=== PATIENT | female | born 1960 | race African-American/Black ===

== ENCOUNTER 2017-08-13 16:27 | Inpatient (IN) | payer MEDICARE, MEDICAID ==
[2017-08-13] MEDS: IV NORMAL SALINE 1000ML BAG 1,000 ML IV ×2 (16:45)
[2017-08-13] MEDS ORDERED: OCTREOTIDE 500 MCG in IV NORMAL SALINE 100ML 100 ML IV (16:45)
[2017-08-13] MEDS ORDERED: PIP/TAZO PER PHARMACY MC (17:00)
[2017-08-13 17:10] LABS: BILIRUBIN,URINE MODERATE (NEG); CLARITY,URINE CLOUDY; GLUCOSE,URINE NEGATIVE (NEG); PROTEIN,URINE 30 mg/dL (NEG-TRACE)
[2017-08-13 17:18] LABS: COLOR,URINE BROWN; NITRITE,URINE NEGATIVE (NEG)
[2017-08-13 17:22] LABS: BACTERIA,URINE 0 /HPF (0-FEW); HYALINE CASTS, URINE MANY /HPF; RBC,URINE TNTC /HPF (0-2); SQUAMOUS EPITHELIAL CELL,UR FEW /LPF
[2017-08-13] MEDS: PANTOPRAZOLE IV PUSH 40 MG VIAL. IVP (17:24)
[2017-08-13] MEDS: HYDROCORTISONE SOD SUCC/PF 100 MG/2 ML VIAL. IV ×2 (17:24→22:46)
[2017-08-13] MEDS: VANCOMYCIN 2 GM in IV 1/2 NORMAL SALINE 500 ML IV (19:36)
[2017-08-13] MEDS: SODIUM BICARBONATE VIAL 150 MEQ in IV DEXTROSE 5% 1,000 ML IV (19:37)
[2017-08-13] MEDS ORDERED: NOREPINEPHRIN PREMIX 250 ML IV (22:45)
[2017-08-13 23:04] LABS: BASO % 0 % (0-3); EOS % 0 % (0-3); HEMATOCRIT 25.9 % (36.0-47.0); HEMOGLOBIN 8.6 g/dL (12.0-15.5); LYMPH # 0.3 x10^3/uL (1.0-4.8); LYMPH % 3 % (24-48); MEAN CORPUSCULAR HEMOGLOBIN 30 pg (25-35); MEAN CORPUSCULAR HGB CONC 33 g/dL (31-37); MEAN CORPUSCULAR VOLUME 91 fL (79-100); MONO # 0.2 x10^3/uL (0.0-1.1); MONO % 2 % (0-9); NEUT # 9.7 x10^3uL (1.8-7.7); NEUT % 95 % (31-73); PLATELET COUNT 184 x10^3/uL (140-400); RED BLOOD COUNT 2.86 x10^6/uL (3.50-5.40); RED CELL DISTRIBUTION WIDTH 18.8 % (11.5-14.5); WHITE BLOOD COUNT 10.2 x10^3/uL (4.0-11.0)
[2017-08-13 23:05] LABS: ADD MAN DIFF? YES
[2017-08-13 23:23] LABS: % BANDS 15 % (0-9); % EOS 1 % (0-5); % LYMPHS 4 % (24-48); % METAS 1 % (0-0); % MONOS 2 % (0-10); % SEGS 77 % (35-66)
[2017-08-13 23:24] LABS: MAGNESIUM 1.8 mg/dL (1.8-2.4)
[2017-08-13 23:24] LABS: PHOSPHORUS 4.6 mg/dL (2.6-4.7)
[2017-08-13 23:30] LABS: LACTIC ACID 2.4 mmol/L (0.4-2.0)
[2017-08-13 23:33] LABS: ALBUMIN 1.6 g/dL (3.4-5.0); ALBUMIN/GLOBULIN RATIO 0.3 (1.0-1.7); ALK PHOS 301 U/L (46-116); ALT (SGPT) 15 U/L (14-59); ANION GAP 21 (6-14); AST (SGOT) 58 U/L (15-37); BLOOD UREA NITROGEN 74 mg/dL (7-20); BUN/CREATININE RATIO 9 (6-20); CALCIUM 7.6 mg/dL (8.5-10.1); CARBON DIOXIDE 14 mmol/L (21-32); CHLORIDE 101 mmol/L (98-107); CREATININE 7.8 mg/dL (0.6-1.0); GFR 6.5; GLUCOSE 208 mg/dL (70-99); POTASSIUM 5.2 mmol/L (3.5-5.1); SODIUM 136 mmol/L (136-145); TOTAL BILIRUBIN 3.2 mg/dL (0.2-1.0); TOTAL PROTEIN 6.6 g/dL (6.4-8.2)
[2017-08-13 23:34] LABS: PLT ESTIMATE ADEQUATE (ADEQUATE); SCHISTOCYTES FEW; TOXIC GRANULATION MOD; TOXIC VACUOLATION SLIGHT
[2017-08-14] MEDS: SODIUM BICARBONATE VIAL 150 MEQ in IV DEXTROSE 5% 1,000 ML IV ×4 (01:22→20:15)
[2017-08-14] MEDS: VANCOMYCIN PER PHARMACY MC ×2 (03:35→10:08)
[2017-08-14] MEDS: HYDROCORTISONE SOD SUCC/PF 100 MG/2 ML VIAL. IV ×3 (06:17→22:22)
[2017-08-14] MEDS: PIPERACILLIN/TAZOBACTAM 2.25 GM in IV NORMAL SALINE 50ML 50 ML IV ×2 (06:17)
[2017-08-14] MEDS: NOREPINEPHRIN PREMIX 250 ML IV ×2 (06:18→21:24)
[2017-08-14 06:35] LABS: ADD MAN DIFF? NO
[2017-08-14 06:43] LABS: BASO % 0 % (0-3); EOS % 0 % (0-3); HEMATOCRIT 23.1 % (36.0-47.0); LYMPH # 0.3 x10^3/uL (1.0-4.8); LYMPH % 4 % (24-48); MEAN CORPUSCULAR HEMOGLOBIN 31 pg (25-35); MEAN CORPUSCULAR HGB CONC 35 g/dL (31-37); MEAN CORPUSCULAR VOLUME 89 fL (79-100); MONO # 0.2 x10^3/uL (0.0-1.1); MONO % 2 % (0-9); NEUT # 8.8 x10^3uL (1.8-7.7); NEUT % 94 % (31-73); PLATELET COUNT 153 x10^3/uL (140-400); RED CELL DISTRIBUTION WIDTH 18.4 % (11.5-14.5); WHITE BLOOD COUNT 9.3 x10^3/uL (4.0-11.0)
[2017-08-14 07:10] LABS: ALBUMIN 1.4 g/dL (3.4-5.0); ALBUMIN/GLOBULIN RATIO 0.3 (1.0-1.7); ALK PHOS 268 U/L (46-116); ALT (SGPT) 16 U/L (14-59); ANION GAP 18 (6-14); AST (SGOT) 59 U/L (15-37); BLOOD UREA NITROGEN 67 mg/dL (7-20); BUN/CREATININE RATIO 9 (6-20); CARBON DIOXIDE 20 mmol/L (21-32); CHLORIDE 99 mmol/L (98-107); CREATININE 7.5 mg/dL (0.6-1.0); GFR 6.8; GLUCOSE 285 mg/dL (70-99); POTASSIUM 4.4 mmol/L (3.5-5.1); SODIUM 137 mmol/L (136-145); TOTAL BILIRUBIN 2.7 mg/dL (0.2-1.0); TOTAL PROTEIN 6.2 g/dL (6.4-8.2)
[2017-08-14 09:56] LABS: RETIC COUNT 0.3 % (0.5-2.5)
[2017-08-14 10:07] LABS: % SAT IRON 45 % (15-34); IRON,SERUM 38 ug/dL (50-170)
[2017-08-14 10:39] LABS: FOLATE 8.24 ng/ml (3.2-20.0)
[2017-08-14 11:28] LABS: INFLUENZA A PATIENT NEGATIVE (NEGATIVE); INFLUENZA B PATIENT NEGATIVE (NEGATIVE); OBC FLU VALID
[2017-08-14 11:46] LABS: VITAMIN-B12 > 2000 pg/mL (247-911)
[2017-08-14] MEDS: PANTOPRAZOLE IV PUSH 40 MG VIAL. IVP ×2 (12:23→21:19)
[2017-08-14 13:19] LABS: MRSA BY PCR Negative (Negative)
[2017-08-14] MEDS: PIPERACILLIN/TAZOBACTAM 2.25 GM in IV NORMAL SALINE 100ML 100 ML IV ×2 (15:38→22:22)
[2017-08-15] MEDS: SODIUM BICARBONATE VIAL 150 MEQ in IV DEXTROSE 5% 1,000 ML IV ×3 (00:15→10:37)
[2017-08-15 05:15] LABS: ADD MAN DIFF? NO
[2017-08-15 05:36] LABS: BASO % 0 % (0-3); EOS % 0 % (0-3); LYMPH # 0.3 x10^3/uL (1.0-4.8); LYMPH % 4 % (24-48); MEAN CORPUSCULAR HEMOGLOBIN 30 pg (25-35); MEAN CORPUSCULAR HGB CONC 35 g/dL (31-37); MEAN CORPUSCULAR VOLUME 87 fL (79-100); MONO # 0.1 x10^3/uL (0.0-1.1); MONO % 2 % (0-9); NEUT # 6.8 x10^3uL (1.8-7.7); NEUT % 94 % (31-73); PLATELET COUNT 103 x10^3/uL (140-400); RED BLOOD COUNT 2.17 x10^6/uL (3.50-5.40); RED CELL DISTRIBUTION WIDTH 18.5 % (11.5-14.5); WHITE BLOOD COUNT 7.3 x10^3/uL (4.0-11.0)
[2017-08-15 05:41] LABS: HEMATOCRIT 18.8 % (36.0-47.0); HEMOGLOBIN 6.5 g/dL (12.0-15.5)
[2017-08-15 06:01] LABS: ALBUMIN 1.3 g/dL (3.4-5.0); ANION GAP 15 (6-14); BLOOD UREA NITROGEN 53 mg/dL (7-20); CALCIUM 6.3 mg/dL (8.5-10.1); CARBON DIOXIDE 33 mmol/L (21-32); CHLORIDE 94 mmol/L (98-107); CREATININE 5.6 mg/dL (0.6-1.0); GFR 9.6; GLUCOSE 207 mg/dL (70-99); PHOSPHORUS 2.3 mg/dL (2.6-4.7); SODIUM 142 mmol/L (136-145)
[2017-08-15] MEDS: HYDROCORTISONE SOD SUCC/PF 100 MG/2 ML VIAL. IV ×3 (06:11→21:30)
[2017-08-15] MEDS: PIPERACILLIN/TAZOBACTAM 2.25 GM in IV NORMAL SALINE 100ML 100 ML IV ×3 (06:11→21:30)
[2017-08-15] MEDS: ALTEPLASE 2 MG VIAL INT CAT (08:00)
[2017-08-15] MEDS ORDERED: POTASSIUM CHLORIDE 20MEQ 50 ML IV (08:00)
[2017-08-15] MEDS: POTASSIUM CHLORIDE 20MEQ 50 ML IV ×3 (08:30→10:53)
[2017-08-15] MEDS: VANCOMYCIN PER PHARMACY MC ×2 (09:03→21:20)
[2017-08-15] MEDS: PANTOPRAZOLE IV PUSH 40 MG VIAL. IVP ×2 (10:35→21:21)
[2017-08-15 11:29] LABS: HCV ANTIBODY <0.1 s/co ratio (0.0-0.9); HEP A IGM ABDY Negative (Negative); HEP B SURFACE AG Negative (Negative)
[2017-08-15] MEDS ORDERED: POTASSIUM PHOSPHATE DIBASIC 13.6 MMOL in IV NORMAL SALINE 250ML 250 ML IV ×2 (11:30→14:00)
[2017-08-15] MEDS: IV NORMAL SALINE 1000ML BAG 1,000 ML IV ×2 (12:17→21:21)
[2017-08-15] MEDS: POTASSIUM PHOSPHATE DIBASIC 13.6 MMOL in IV DEXTROSE 5% 100 ML IV (12:18)
[2017-08-15 12:49] LABS: CREATINE KINASE 181 U/L (26-192)
[2017-08-15 14:20] LABS: IMMEDIATE SPIN CROSSMATCH 1 1
[2017-08-15 18:44] LABS: FIBRINOGEN 290 mg/dL (200-440); INR 1.4 (0.8-1.1); PARTIAL THROMBOPLASTIN TIME 42 SEC (24-38); PROTHROMBIN TIME PATIENT 16.6 SEC (11.7-14.0)
[2017-08-15] MEDS: VANCOMYCIN RANDOM LEVEL. MC (19:00)
[2017-08-15 19:08] LABS: FERRITIN 739 ng/mL (8-252); LACTATE DEHYDROGENASE 238 U/L (81-234)
[2017-08-15 19:08] LABS: DIRECT BILIRUBIN 1.2 mg/dL (0.0-0.2)
[2017-08-16] MEDS: IV NORMAL SALINE 1000ML BAG 1,000 ML IV ×3 (06:26→23:17)
[2017-08-16] MEDS: PIPERACILLIN/TAZOBACTAM 2.25 GM in IV NORMAL SALINE 100ML 100 ML IV ×3 (06:26→23:20)
[2017-08-16] MEDS: HYDROCORTISONE SOD SUCC/PF 100 MG/2 ML VIAL. IV ×3 (06:26→23:21)
[2017-08-16 06:43] LABS: ADD MAN DIFF? NO
[2017-08-16 06:45] LABS: BASO % 0 % (0-3); EOS % 0 % (0-3); HEMOGLOBIN 8.1 g/dL (12.0-15.5); LYMPH # 0.3 x10^3/uL (1.0-4.8); LYMPH % 5 % (24-48); MEAN CORPUSCULAR HEMOGLOBIN 29 pg (25-35); MEAN CORPUSCULAR HGB CONC 34 g/dL (31-37); MEAN CORPUSCULAR VOLUME 86 fL (79-100); MONO # 0.2 x10^3/uL (0.0-1.1); MONO % 3 % (0-9); NEUT # 6.2 x10^3uL (1.8-7.7); NEUT % 92 % (31-73); PLATELET COUNT 81 x10^3/uL (140-400); RED BLOOD COUNT 2.79 x10^6/uL (3.50-5.40); WHITE BLOOD COUNT 6.7 x10^3/uL (4.0-11.0)
[2017-08-16 08:07] LABS: ANION GAP 12 (6-14); BLOOD UREA NITROGEN 44 mg/dL (7-20); CALCIUM 6.1 mg/dL (8.5-10.1); CARBON DIOXIDE 35 mmol/L (21-32); CHLORIDE 98 mmol/L (98-107); CREATININE 4.6 mg/dL (0.6-1.0); GLUCOSE 139 mg/dL (70-99); POTASSIUM 3.8 mmol/L (3.5-5.1); SODIUM 145 mmol/L (136-145)
[2017-08-16 09:16] LABS: PHOSPHORUS 3.1 mg/dL (2.6-4.7)
[2017-08-16 09:23] LABS: MAGNESIUM 1.3 mg/dL (1.8-2.4)
[2017-08-16] MEDS: PANTOPRAZOLE IV PUSH 40 MG VIAL. IVP ×2 (10:33→21:29)
[2017-08-16] MEDS: VANCOMYCIN PER PHARMACY MC ×2 (14:50→19:58)
[2017-08-16] MEDS: MAGNESIUM SULFATE 4GM 100 ML IV (14:52)
[2017-08-16 16:21] LABS: PATHOLOGY REVIEW SEE SEPARATE REPORT
[2017-08-16] MEDS: VANCOMYCIN RANDOM LEVEL. MC (18:00)
[2017-08-16] MEDS: VANCOMYCIN 1 GM in IV DEXTROSE 5 %-0.2 % NACL 250 ML IV (20:06)
[2017-08-17 05:46] LABS: ADD MAN DIFF? NO
[2017-08-17 06:10] LABS: ANION GAP 7 (6-14); BLOOD UREA NITROGEN 48 mg/dL (7-20); CALCIUM 6.1 mg/dL (8.5-10.1); CARBON DIOXIDE 36 mmol/L (21-32); CHLORIDE 99 mmol/L (98-107); GFR 14.1; GLUCOSE 266 mg/dL (70-99); MAGNESIUM 2.4 mg/dL (1.8-2.4); PHOSPHORUS 1.5 mg/dL (2.6-4.7); POTASSIUM 3.1 mmol/L (3.5-5.1); SODIUM 142 mmol/L (136-145)
[2017-08-17 06:12] LABS: BASO % 0 % (0-3); EOS % 0 % (0-3); HEMATOCRIT 24.3 % (36.0-47.0); HEMOGLOBIN 8.1 g/dL (12.0-15.5); LYMPH # 0.2 x10^3/uL (1.0-4.8); LYMPH % 3 % (24-48); MEAN CORPUSCULAR HEMOGLOBIN 29 pg (25-35); MEAN CORPUSCULAR HGB CONC 33 g/dL (31-37); MEAN CORPUSCULAR VOLUME 87 fL (79-100); MONO # 0.2 x10^3/uL (0.0-1.1); MONO % 3 % (0-9); NEUT % 94 % (31-73); PLATELET COUNT 69 x10^3/uL (140-400); RED BLOOD COUNT 2.78 x10^6/uL (3.50-5.40); RED CELL DISTRIBUTION WIDTH 17.9 % (11.5-14.5); WHITE BLOOD COUNT 6.4 x10^3/uL (4.0-11.0)
[2017-08-17] MEDS: HYDROCORTISONE SOD SUCC/PF 100 MG/2 ML VIAL. IV ×3 (06:33→22:03)
[2017-08-17] MEDS: PIPERACILLIN/TAZOBACTAM 2.25 GM in IV NORMAL SALINE 100ML 100 ML IV ×3 (06:34→22:03)
[2017-08-17 08:21] LABS: POC GLUCOSE 208 mg/dL (70-99)
[2017-08-17] MEDS: MAGNESIUM SULFATE 4GM 100 ML IV (09:00)
[2017-08-17] MEDS: PANTOPRAZOLE IV PUSH 40 MG VIAL. IVP (09:14)
[2017-08-17] MEDS: VANCOMYCIN PER PHARMACY MC (09:20)
[2017-08-17] MEDS ORDERED: DEXTROSE 50% 25 GM / 50ML DISP.SYRIN. IV (10:30)
[2017-08-17 11:44] LABS: ALBUMIN 1.6 g/dL (3.4-5.0); ALK PHOS 306 U/L (46-116); ALT (SGPT) 27 U/L (14-59); AST (SGOT) 79 U/L (15-37); DIRECT BILIRUBIN 1.1 mg/dL (0.0-0.2); TOTAL BILIRUBIN 1.5 mg/dL (0.2-1.0)
[2017-08-17] MEDS: POTASSIUM PHOSPHATE DIBASIC 13.6 MMOL in IV DEXTROSE 5% 100 ML IV (12:25)
[2017-08-17 13:06] LABS: POC GLUCOSE 236 mg/dL (70-99)
[2017-08-17] MEDS ORDERED: BUTORPHANOL 2 MG/ML VIAL. IV (13:15)
[2017-08-17] MEDS: IV NORMAL SALINE 1000ML BAG 1,000 ML IV (14:00)
[2017-08-17] MEDS: INSULIN ASPART 300 UNITS/3 ML INSULN.PEN SQ ×2 (14:06→18:08)
[2017-08-17 16:43] LABS: THYROID STIM HORMONE (TSH) 0.153 uIU/mL (0.358-3.74)
[2017-08-18 05:11] LABS: ADD MAN DIFF? NO
[2017-08-18 05:27] LABS: BASO % 0 % (0-3); EOS % 0 % (0-3); HEMATOCRIT 24.3 % (36.0-47.0); HEMOGLOBIN 8.2 g/dL (12.0-15.5); LYMPH # 0.5 x10^3/uL (1.0-4.8); LYMPH % 9 % (24-48); MEAN CORPUSCULAR HEMOGLOBIN 29 pg (25-35); MEAN CORPUSCULAR HGB CONC 34 g/dL (31-37); MEAN CORPUSCULAR VOLUME 87 fL (79-100); MONO # 0.5 x10^3/uL (0.0-1.1); MONO % 10 % (0-9); NEUT # 4.2 x10^3uL (1.8-7.7); NEUT % 81 % (31-73); PLATELET COUNT 87 x10^3/uL (140-400); RED BLOOD COUNT 2.79 x10^6/uL (3.50-5.40); RED CELL DISTRIBUTION WIDTH 18.2 % (11.5-14.5); WHITE BLOOD COUNT 5.2 x10^3/uL (4.0-11.0)
[2017-08-18 05:30] LABS: ANION GAP 9 (6-14); BLOOD UREA NITROGEN 51 mg/dL (7-20); CALCIUM 6.3 mg/dL (8.5-10.1); CARBON DIOXIDE 34 mmol/L (21-32); CHLORIDE 101 mmol/L (98-107); CREATININE 3.5 mg/dL (0.6-1.0); GFR 16.5; GLUCOSE 208 mg/dL (70-99); POTASSIUM 3.4 mmol/L (3.5-5.1); SODIUM 144 mmol/L (136-145)
[2017-08-18] MEDS: PIPERACILLIN/TAZOBACTAM 2.25 GM in IV NORMAL SALINE 100ML 100 ML IV ×3 (06:00→23:15)
[2017-08-18] MEDS: HYDROCORTISONE SOD SUCC/PF 100 MG/2 ML VIAL. IV ×3 (06:01→20:06)
[2017-08-18 08:43] LABS: POC GLUCOSE 182 mg/dL (70-99)
[2017-08-18] MEDS: MAGNESIUM SULFATE 4GM 100 ML IV (09:00)
[2017-08-18] MEDS: PANTOPRAZOLE IV PUSH 40 MG VIAL. IVP (10:12)
[2017-08-18] MEDS: INSULIN ASPART 300 UNITS/3 ML INSULN.PEN SQ ×3 (10:19→18:28)
[2017-08-18] MEDS: POTASSIUM CHLORIDE 20MEQ 50 ML IV (11:40)
[2017-08-18] MEDS: FUROSEMIDE 40 MG/4 ML VIAL. IVP (16:44)
[2017-08-18 17:30] LABS: BARBITURATES NEG (NEG); BENZODIAZEPINES NEG (NEG); CANNABINOIDS NEG (NEG); COCAINE NEG (NEG); METHADONE NEG (NEG); OPIATES NEG (NEG); PHENCYCLIDINE NEG (NEG)
[2017-08-18 17:41] LABS: AMPHETAMINE/METHAMPHETAMINE NEG (NEG); ETHANOL, URINE NEG (NEG)
[2017-08-18 17:42] LABS: AMMONIA 31 mcmol/L (11-34)
[2017-08-18 17:47] LABS: POC GLUCOSE 227 mg/dL (70-99)
[2017-08-18] MEDS: IPRATRPIUM/ALBUTEROL 0.5/2.5MG 3 ML NEBU. NEB (21:06)
[2017-08-19] MEDS: HYDROCORTISONE SOD SUCC/PF 100 MG/2 ML VIAL. IV ×3 (04:39→21:44)
[2017-08-19] MEDS: PIPERACILLIN/TAZOBACTAM 2.25 GM in IV NORMAL SALINE 100ML 100 ML IV ×3 (04:39→21:44)
[2017-08-19 05:09] LABS: ADD MAN DIFF? NO
[2017-08-19 05:18] LABS: BASO % 0 % (0-3); EOS % 0 % (0-3); HEMOGLOBIN 7.1 g/dL (12.0-15.5); LYMPH # 0.6 x10^3/uL (1.0-4.8); LYMPH % 12 % (24-48); MEAN CORPUSCULAR HEMOGLOBIN 30 pg (25-35); MEAN CORPUSCULAR HGB CONC 34 g/dL (31-37); MEAN CORPUSCULAR VOLUME 88 fL (79-100); MONO # 0.7 x10^3/uL (0.0-1.1); MONO % 14 % (0-9); NEUT # 3.6 x10^3uL (1.8-7.7); NEUT % 74 % (31-73); PLATELET COUNT 102 x10^3/uL (140-400); RED BLOOD COUNT 2.35 x10^6/uL (3.50-5.40); RED CELL DISTRIBUTION WIDTH 18.5 % (11.5-14.5); WHITE BLOOD COUNT 4.9 x10^3/uL (4.0-11.0)
[2017-08-19 05:36] LABS: HEMATOCRIT 20.7 % (36.0-47.0)
[2017-08-19 05:42] LABS: ALBUMIN 1.7 g/dL (3.4-5.0); ANION GAP 8 (6-14); BLOOD UREA NITROGEN 58 mg/dL (7-20); CALCIUM 6.2 mg/dL (8.5-10.1); CARBON DIOXIDE 35 mmol/L (21-32); CHLORIDE 103 mmol/L (98-107); CREATININE 3.3 mg/dL (0.6-1.0); GFR 17.6; GLUCOSE 208 mg/dL (70-99); PHOSPHORUS 1.5 mg/dL (2.6-4.7); SODIUM 146 mmol/L (136-145)
[2017-08-19 05:54] LABS: POTASSIUM 2.9 mmol/L (3.5-5.1)
[2017-08-19] MEDS ORDERED: POTASSIUM CHLORIDE 20MEQ 50 ML IV ×3 (07:30→14:45)
[2017-08-19] MEDS: IPRATRPIUM/ALBUTEROL 0.5/2.5MG 3 ML NEBU. NEB ×4 (07:47→21:22)
[2017-08-19] MEDS: POTASSIUM CHLORIDE 20MEQ 50 ML IV ×2 (08:32→10:42)
[2017-08-19] MEDS: PANTOPRAZOLE IV PUSH 40 MG VIAL. IVP (08:35)
[2017-08-19] MEDS: MAGNESIUM SULFATE 4GM 100 ML IV (09:00)
[2017-08-19] MEDS: INSULIN ASPART 300 UNITS/3 ML INSULN.PEN SQ ×3 (09:01→18:30)
[2017-08-19 09:02] LABS: POC GLUCOSE 195 mg/dL (70-99)
[2017-08-19 11:39] LABS: POC GLUCOSE 194 mg/dL (70-99)
[2017-08-19] MEDS ORDERED: POTASSIUM PHOSPHATE DIBASIC IV (14:45)
[2017-08-19] MEDS ORDERED: NORMAL SALINE IV (14:45)
[2017-08-19] MEDS ORDERED: MAGNESIUM SULFATE 2GM 50 ML IV (14:45)
[2017-08-19 18:07] LABS: POC GLUCOSE 254 mg/dL (70-99)
[2017-08-19 18:29] LABS: POTASSIUM 3.3 mmol/L (3.5-5.1)
[2017-08-19] MEDS: POTASSIUM PHOSPHATE DIBASIC 13.6 MMOL in IV DEXTROSE 5% 100 ML IV (19:19)
[2017-08-20] MEDS: POTASSIUM PHOSPHATE DIBASIC 13.6 MMOL in IV DEXTROSE 5% 100 ML IV ×2 (02:37→04:39)
[2017-08-20] MEDS: PIPERACILLIN/TAZOBACTAM 2.25 GM in IV NORMAL SALINE 100ML 100 ML IV ×3 (05:48→21:47)
[2017-08-20] MEDS: HYDROCORTISONE SOD SUCC/PF 100 MG/2 ML VIAL. IV ×3 (05:48→21:47)
[2017-08-20 06:36] LABS: POC GLUCOSE 456 mg/dL (70-99)
[2017-08-20 06:36] LABS: POC GLUCOSE 238 mg/dL (70-99)
[2017-08-20 06:55] LABS: BASO % 0 % (0-3); EOS % 0 % (0-3); HEMATOCRIT 21.2 % (36.0-47.0); LYMPH # 0.4 x10^3/uL (1.0-4.8); LYMPH % 5 % (24-48); MEAN CORPUSCULAR HEMOGLOBIN 30 pg (25-35); MEAN CORPUSCULAR HGB CONC 33 g/dL (31-37); MEAN CORPUSCULAR VOLUME 90 fL (79-100); MONO # 0.9 x10^3/uL (0.0-1.1); MONO % 14 % (0-9); NEUT # 5.4 x10^3uL (1.8-7.7); NEUT % 81 % (31-73); PLATELET COUNT 57 x10^3/uL (140-400); RED BLOOD COUNT 2.36 x10^6/uL (3.50-5.40); RED CELL DISTRIBUTION WIDTH 18.5 % (11.5-14.5); WHITE BLOOD COUNT 6.6 x10^3/uL (4.0-11.0)
[2017-08-20 07:00] LABS: ANION GAP 13 (6-14); BLOOD UREA NITROGEN 60 mg/dL (7-20); CALCIUM 6.3 mg/dL (8.5-10.1); CARBON DIOXIDE 32 mmol/L (21-32); CHLORIDE 104 mmol/L (98-107); GFR 19.7; GLUCOSE 267 mg/dL (70-99); POTASSIUM 3.9 mmol/L (3.5-5.1); SODIUM 149 mmol/L (136-145)
[2017-08-20 07:04] LABS: PHOSPHORUS 4.5 mg/dL (2.6-4.7)
[2017-08-20 07:31] LABS: ADD MAN DIFF? YES
[2017-08-20] MEDS: IPRATRPIUM/ALBUTEROL 0.5/2.5MG 3 ML NEBU. NEB ×4 (08:35→18:24)
[2017-08-20] MEDS: PANTOPRAZOLE IV PUSH 40 MG VIAL. IVP (09:18)
[2017-08-20] MEDS: CALCIUM CHLORIDE 1,000 MG in IV DEXTROSE 5% 50 ML IV ×3 (09:18→21:46)
[2017-08-20 09:20] LABS: % BANDS 14 % (0-9); % LYMPHS 5 % (24-48); % METAS 2 % (0-0); % MONOS 14 % (0-10); % SEGS 65 % (35-66); NUCLEATED RBC 5; PLT ESTIMATE DECREASED (ADEQUATE); POLYCHROMASIA PRESENT
[2017-08-20 09:21] LABS: ANISOCYTOSIS MOD; HYPOCHROMIA SLIGHT
[2017-08-20] MEDS: INSULIN ASPART 300 UNITS/3 ML INSULN.PEN SQ ×3 (09:27→17:22)
[2017-08-20 09:47] LABS: TARGET CELLS FEW
[2017-08-20 09:48] LABS: OVALOCYTES FEW; TEAR DROP CELLS OCC
[2017-08-20 11:42] LABS: POC GLUCOSE 217 mg/dL (70-99)
[2017-08-20 14:54] LABS: IMMEDIATE SPIN CROSSMATCH 1 1
[2017-08-20] MEDS: ASPIRIN CHEWABLE 81 MG TABLET. PO (16:57)
[2017-08-20 17:25] LABS: POC GLUCOSE 199 mg/dL (70-99)
[2017-08-21 00:37] LABS: POC GLUCOSE 171 mg/dL (70-99)
[2017-08-21] MEDS: HYDROCORTISONE SOD SUCC/PF 100 MG/2 ML VIAL. IV ×2 (05:44→14:09)
[2017-08-21] MEDS: PIPERACILLIN/TAZOBACTAM 2.25 GM in IV NORMAL SALINE 100ML 100 ML IV (05:44)
[2017-08-21 06:24] LABS: ADD MAN DIFF? NO
[2017-08-21 06:41] LABS: ANION GAP 12 (6-14); BASO % 0 % (0-3); BLOOD UREA NITROGEN 61 mg/dL (7-20); CALCIUM 8.3 mg/dL (8.5-10.1); CARBON DIOXIDE 31 mmol/L (21-32); CHLORIDE 104 mmol/L (98-107); CREATININE 2.8 mg/dL (0.6-1.0); EOS % 0 % (0-3); GFR 21.3; GLUCOSE 217 mg/dL (70-99); HEMATOCRIT 27.7 % (36.0-47.0); HEMOGLOBIN 9.1 g/dL (12.0-15.5); LYMPH # 0.3 x10^3/uL (1.0-4.8); LYMPH % 4 % (24-48); MAGNESIUM 1.9 mg/dL (1.8-2.4); MEAN CORPUSCULAR HEMOGLOBIN 31 pg (25-35); MEAN CORPUSCULAR HGB CONC 33 g/dL (31-37); MEAN CORPUSCULAR VOLUME 93 fL (79-100); MONO # 0.7 x10^3/uL (0.0-1.1); MONO % 9 % (0-9); NEUT # 6.6 x10^3uL (1.8-7.7); NEUT % 87 % (31-73); PHOSPHORUS 4.1 mg/dL (2.6-4.7); PLATELET COUNT 72 x10^3/uL (140-400); POTASSIUM 3.9 mmol/L (3.5-5.1); RED BLOOD COUNT 2.97 x10^6/uL (3.50-5.40); RED CELL DISTRIBUTION WIDTH 18.2 % (11.5-14.5); SODIUM 147 mmol/L (136-145); WHITE BLOOD COUNT 7.7 x10^3/uL (4.0-11.0)
[2017-08-21] MEDS: IPRATRPIUM/ALBUTEROL 0.5/2.5MG 3 ML NEBU. NEB ×2 (07:47→13:19)
[2017-08-21] MEDS: PANTOPRAZOLE IV PUSH 40 MG VIAL. IVP (08:27)
[2017-08-21] MEDS: ASPIRIN CHEWABLE 81 MG TABLET. PO (08:33)
[2017-08-21] MEDS: INSULIN ASPART 300 UNITS/3 ML INSULN.PEN SQ ×2 (08:52→13:36)
[2017-08-21 08:54] LABS: POC GLUCOSE 197 mg/dL (70-99)
[2017-08-21 11:47] LABS: POC GLUCOSE 211 mg/dL (70-99)
[2017-08-21] MEDS: PIPERACILLIN/TAZOBACTAM 2.25 GM in IV NORMAL SALINE 50ML 50 ML IV (14:09)
== END 2017-08-21 16:07 | DRG 682 ==
LOC: 2 SOUTH 08-17 04:34 → 1 WEST ICU 16:27
PROVIDERS: Internal Medicine
PROC: 30233N1 Transfusion of Nonautologous Red Blood Cells into Peripheral Vein, Percutaneous Approach (ICD-10-PCS; principal; 2017-08-15)
DX: N17.0 Acute kidney failure with tubular necrosis (principal); G93.41 Metabolic encephalopathy; R57.9 Shock, unspecified; D61.818 Other pancytopenia; E11.22 Type 2 diabetes mellitus with diabetic chronic kidney disease; R17 Unspecified jaundice; I48.91 Unspecified atrial fibrillation; E86.0 Dehydration; E87.2 Acidosis; I13.0 Hypertensive heart and chronic kidney disease with heart failure and stage 1 through stage 4 chronic kidney disease, or unspecified chronic kidney disease; E83.51 Hypocalcemia; N18.3 Chronic kidney disease, stage 3 (moderate); I50.9 Heart failure, unspecified; D63.8 Anemia in other chronic diseases classified elsewhere; D86.9 Sarcoidosis, unspecified; E66.9 Obesity, unspecified; E78.5 Hyperlipidemia, unspecified; E87.6 Hypokalemia; J32.0 Chronic maxillary sinusitis; J44.9 Chronic obstructive pulmonary disease, unspecified; K21.9 Gastro-esophageal reflux disease without esophagitis; K27.9 Peptic ulcer, site unspecified, unspecified as acute or chronic, without hemorrhage or perforation; M10.9 Gout, unspecified; M19.90 Unspecified osteoarthritis, unspecified site; Z79.82 Long term (current) use of aspirin; Z79.899 Other long term (current) drug therapy; Z80.3 Family history of malignant neoplasm of breast; Z82.49 Family history of ischemic heart disease and other diseases of the circulatory system; Z87.11 Personal history of peptic ulcer disease; Z90.49 Acquired absence of other specified parts of digestive tract; Z95.0 Presence of cardiac pacemaker
CPT/HCPCS: 36415; 36569; 70450; 71045; 74018; 74176; 76705; 76770; 80048; 80053; 80069; 80074; 80076; 80202; 80307; 81001; 82140; 82248; 82550; 82607; 82728; 82746; 82962; 83540; 83550; 83605; 83615; 83735; 84100; 84132; 84439; 84443; 84481; 85007; 85025; 85045; 85384; 85610; 85730; 86850; 86900; 86901; 86920; 87040; 87641; 87804; 87804-59; 92526-GN; 92610-GN; 94640; 94760; 95816; 97110-GP; 97116-GP; 97163-GP; 97165-GO; 97530-GO; 97530-GP; 97535-GO; C9113; J1720; J1815; J1940; J2543; J2997; J3370; J3475; J3480; J7030; J7620; P9016

== ENCOUNTER 2017-08-23 20:32 | Inpatient (IN) | payer MEDICARE, MEDICAID ==
[2017-08-23] MEDS ORDERED: NITROGLYCERIN SUBLINGUAL 0.4 MG BOTTLE OF 25. SL (21:45)
[2017-08-23] MEDS ORDERED: POLYETHYLENE GLYCOL 3350 17 GM PACKET. PEG (21:45)
[2017-08-23] MEDS: AMOXICILLIN/K CLAV 500/125MG TABLET. PEG (21:46)
[2017-08-23] MEDS: POLYVINYL ALCOHOL 1.4% OPHTH SOLUTION 15ML BOTTLE. OU (21:46)
[2017-08-23] MEDS: LANSOPRAZOLE 30 MG TAB.RAP.DR FT (21:47)
[2017-08-23] MEDS: ATORVASTATIN CALCIUM 40 MG TABLET. PEG (21:47)
[2017-08-23] MEDS: PROPAFENONE 150 MG TABLET. PEG (21:47)
[2017-08-23 21:49] LABS: HEMATOCRIT 29.6 % (36.0-47.0); HEMOGLOBIN 9.7 g/dL (12.0-15.5); MEAN CORPUSCULAR HEMOGLOBIN 31 pg (25-35); MEAN CORPUSCULAR HGB CONC 33 g/dL (31-37); MEAN CORPUSCULAR VOLUME 93 fL (79-100); PLATELET COUNT 128 x10^3/uL (140-400); RED BLOOD COUNT 3.17 x10^6/uL (3.50-5.40); RED CELL DISTRIBUTION WIDTH 19.5 % (11.5-14.5); WHITE BLOOD COUNT 12.4 x10^3/uL (4.0-11.0)
[2017-08-23 21:57] LABS: INR 1.3 (0.8-1.1); PARTIAL THROMBOPLASTIN TIME 33 SEC (24-38); PROTHROMBIN TIME PATIENT 15.4 SEC (11.7-14.0)
[2017-08-23 22:14] LABS: ALBUMIN 1.7 g/dL (3.4-5.0); ALBUMIN/GLOBULIN RATIO 0.4 (1.0-1.7); ALK PHOS 242 U/L (46-116); ALT (SGPT) 34 U/L (14-59); ANION GAP 9 (6-14); AST (SGOT) 51 U/L (15-37); BLOOD UREA NITROGEN 51 mg/dL (7-20); BUN/CREATININE RATIO 21 (6-20); CARBON DIOXIDE 32 mmol/L (21-32); CHLORIDE 108 mmol/L (98-107); CREATININE 2.4 mg/dL (0.6-1.0); GFR 25.5; GLUCOSE 79 mg/dL (70-99); POTASSIUM 3.6 mmol/L (3.5-5.1); SODIUM 149 mmol/L (136-145); TOTAL BILIRUBIN 1.7 mg/dL (0.2-1.0); TOTAL PROTEIN 6.1 g/dL (6.4-8.2)
[2017-08-23] MEDS: ALBUTEROL SULFATE 2.5 MG/3 ML NEBU. NEB (23:31)
[2017-08-24] MEDS: IV DEXTROSE 5 %-0.45 % NACL 1,000 ML IV (02:18)
[2017-08-24] MEDS: ALBUTEROL SULFATE 2.5 MG/3 ML NEBU. NEB ×2 (03:57→03:58)
[2017-08-24] MEDS: IPRATRPIUM/ALBUTEROL 0.5/2.5MG 3 ML NEBU. NEB ×4 (07:31→20:07)
[2017-08-24] MEDS: C.DIFF MED SCREEN BY RX. MC (08:00)
[2017-08-24] MEDS: IV DEXTROSE 5% 1,000 ML IV (08:21)
[2017-08-24] MEDS: POLYVINYL ALCOHOL 1.4% OPHTH SOLUTION 15ML BOTTLE. OU ×2 (08:22→20:46)
[2017-08-24] MEDS: AMOXICILLIN/K CLAV 500/125MG TABLET. PEG (09:00)
[2017-08-24] MEDS: RANOLAZINE 500 MG TAB.ER.12H PO (09:00)
[2017-08-24] MEDS: ASPIRIN CHEWABLE 81 MG TABLET. PEG (09:00)
[2017-08-24] MEDS: FERROUS SULFATE ORAL 300 MG/5 ML SOLUTION. PEG ×3 (09:00→20:46)
[2017-08-24] MEDS: PROPAFENONE 150 MG TABLET. PEG ×3 (09:00→20:46)
[2017-08-24] MEDS: ALLOPURINOL 300 MG TABLET. PEG (09:00)
[2017-08-24] MEDS: FOLIC ACID 1 MG TABLET. PEG (09:00)
[2017-08-24 14:16] LABS: BILIRUBIN,URINE LARGE (NEG); CLARITY,URINE CLOUDY; COLOR,URINE RED; GLUCOSE,URINE NEGATIVE (NEG); NITRITE,URINE NEGATIVE (NEG); PROTEIN,URINE >=300 mg/dL (NEG-TRACE)
[2017-08-24 14:34] LABS: BACTERIA,URINE 0 /HPF (0-FEW); RBC,URINE TNTC /HPF (0-2); SQUAMOUS EPITHELIAL CELL,UR OCC /LPF
[2017-08-24] MEDS: NYSTATIN TOPICAL POWDER 15GM BOTTLE. TP ×3 (16:00→20:45)
[2017-08-24] MEDS: PANTOPRAZOLE IV PUSH 40 MG VIAL. IVP (18:34)
[2017-08-24] MEDS: FUROSEMIDE 40 MG/4 ML VIAL. IVP (18:34)
[2017-08-24] MEDS: MEROPENEM 500 MG in IV NORMAL SALINE 50ML 50 ML IV (18:39)
[2017-08-24] MEDS: ATORVASTATIN CALCIUM 40 MG TABLET. PEG (20:46)
[2017-08-25] MEDS: MEROPENEM 500 MG in IV NORMAL SALINE 50ML 50 ML IV ×3 (05:47→22:00)
[2017-08-25 05:54] LABS: ANION GAP 14 (6-14); BLOOD UREA NITROGEN 48 mg/dL (7-20); CALCIUM 8.3 mg/dL (8.5-10.1); CARBON DIOXIDE 27 mmol/L (21-32); CHLORIDE 108 mmol/L (98-107); CREATININE 2.7 mg/dL (0.6-1.0); GFR 22.2; GLUCOSE 49 mg/dL (70-99); POTASSIUM 4.2 mmol/L (3.5-5.1); SODIUM 149 mmol/L (136-145)
[2017-08-25] MEDS: DEXTROSE 50% 25 GM / 50ML DISP.SYRIN. IV (06:07)
[2017-08-25] MEDS: ISOSORBIDE DINITRATE 10 MG TABLET. PO ×3 (07:30→16:30)
[2017-08-25] MEDS: IPRATRPIUM/ALBUTEROL 0.5/2.5MG 3 ML NEBU. NEB ×3 (07:51→16:33)
[2017-08-25] MEDS: PANTOPRAZOLE IV PUSH 40 MG VIAL. IVP (08:39)
[2017-08-25] MEDS: FOLIC ACID 1 MG TABLET. PEG (08:41)
[2017-08-25] MEDS: FERROUS SULFATE ORAL 300 MG/5 ML SOLUTION. PEG ×3 (08:41→20:27)
[2017-08-25] MEDS: ASPIRIN CHEWABLE 81 MG TABLET. PEG (08:41)
[2017-08-25] MEDS: PROPAFENONE 150 MG TABLET. PEG ×3 (08:41→20:27)
[2017-08-25] MEDS: ALLOPURINOL 300 MG TABLET. PEG (08:42)
[2017-08-25] MEDS: POLYVINYL ALCOHOL 1.4% OPHTH SOLUTION 15ML BOTTLE. OU ×2 (09:00→21:59)
[2017-08-25 12:21] LABS: ADD MAN DIFF? NO
[2017-08-25 12:30] LABS: BASO % 0 % (0-3); EOS # 0.1 x10^3/uL (0.0-0.7); EOS % 1 % (0-3); HEMATOCRIT 30.2 % (36.0-47.0); HEMOGLOBIN 9.4 g/dL (12.0-15.5); LYMPH # 0.5 x10^3/uL (1.0-4.8); LYMPH % 4 % (24-48); MEAN CORPUSCULAR HEMOGLOBIN 30 pg (25-35); MEAN CORPUSCULAR HGB CONC 31 g/dL (31-37); MEAN CORPUSCULAR VOLUME 96 fL (79-100); MONO # 0.7 x10^3/uL (0.0-1.1); MONO % 6 % (0-9); NEUT # 10.3 x10^3uL (1.8-7.7); NEUT % 89 % (31-73); PLATELET COUNT 132 x10^3/uL (140-400); RED BLOOD COUNT 3.13 x10^6/uL (3.50-5.40); RED CELL DISTRIBUTION WIDTH 20.6 % (11.5-14.5); WHITE BLOOD COUNT 11.6 x10^3/uL (4.0-11.0)
[2017-08-25] MEDS: NYSTATIN TOPICAL POWDER 15GM BOTTLE. TP ×2 (12:41→22:01)
[2017-08-25] MEDS: methylPREDNISolone SOD SUCC PF 125 MG/2 ML VIAL. IV (12:41)
[2017-08-25] MEDS: FUROSEMIDE 40 MG/4 ML VIAL. IVP (12:41)
[2017-08-25 12:47] LABS: BASE EXCESS ABG 2 mmol/L (-3-3); HCO3 ABG 27 mmol/L (21-28); PCO2 ABG 40 mmHg (35-46); PH ABG 7.44 (7.35-7.45); PO2 ABG 87 mmHg (75-108); SAT O2 ABG 95 % (92-99)
[2017-08-25 12:52] LABS: FIO2 ABG 40
[2017-08-25] MEDS: METOPROLOL TART IMMED RELEASE 25 MG TABLET. PO ×2 (13:30→20:27)
[2017-08-25] MEDS: IV DEXTROSE 5% 1,000 ML IV (15:00)
[2017-08-25 15:52] LABS: ANION GAP 12 (6-14); BLOOD UREA NITROGEN 47 mg/dL (7-20); CALCIUM 8.3 mg/dL (8.5-10.1); CARBON DIOXIDE 30 mmol/L (21-32); CHLORIDE 108 mmol/L (98-107); GFR 19.7; GLUCOSE 110 mg/dL (70-99); POTASSIUM 4.2 mmol/L (3.5-5.1); SODIUM 150 mmol/L (136-145)
[2017-08-25 15:59] LABS: MAGNESIUM 1.6 mg/dL (1.8-2.4)
[2017-08-25] MEDS: methylPREDNISolone SOD SUCC PF 40 MG/ML VIAL. IV ×2 (17:23→21:59)
[2017-08-25] MEDS: ATORVASTATIN CALCIUM 40 MG TABLET. PEG (20:27)
[2017-08-25] MEDS: FLUOCINONIDE 0.05% TOPICAL CREAM 15 GM TUBE. TP (21:59)
[2017-08-26] MEDS: MEROPENEM 500 MG in IV NORMAL SALINE 50ML 50 ML IV ×3 (05:28→23:41)
[2017-08-26] MEDS: methylPREDNISolone SOD SUCC PF 40 MG/ML VIAL. IV ×3 (05:28→21:42)
[2017-08-26 06:06] LABS: HEMATOCRIT 26.4 % (36.0-47.0); HEMOGLOBIN 8.6 g/dL (12.0-15.5); MEAN CORPUSCULAR HEMOGLOBIN 30 pg (25-35); MEAN CORPUSCULAR HGB CONC 33 g/dL (31-37); MEAN CORPUSCULAR VOLUME 94 fL (79-100); PLATELET COUNT 136 x10^3/uL (140-400); RED BLOOD COUNT 2.82 x10^6/uL (3.50-5.40); RED CELL DISTRIBUTION WIDTH 19.7 % (11.5-14.5); WHITE BLOOD COUNT 6.6 x10^3/uL (4.0-11.0)
[2017-08-26 06:31] LABS: ALBUMIN 1.7 g/dL (3.4-5.0); ALBUMIN/GLOBULIN RATIO 0.4 (1.0-1.7); ALK PHOS 233 U/L (46-116); ALT (SGPT) 26 U/L (14-59); ANION GAP 15 (6-14); AST (SGOT) 36 U/L (15-37); BLOOD UREA NITROGEN 53 mg/dL (7-20); BUN/CREATININE RATIO 16 (6-20); CALCIUM 8.4 mg/dL (8.5-10.1); CARBON DIOXIDE 26 mmol/L (21-32); CHLORIDE 108 mmol/L (98-107); CREATININE 3.4 mg/dL (0.6-1.0); GLUCOSE 172 mg/dL (70-99); POTASSIUM 4.4 mmol/L (3.5-5.1); SODIUM 149 mmol/L (136-145); TOTAL BILIRUBIN 1.5 mg/dL (0.2-1.0); TOTAL PROTEIN 6.5 g/dL (6.4-8.2)
[2017-08-26] MEDS: IPRATRPIUM/ALBUTEROL 0.5/2.5MG 3 ML NEBU. NEB ×5 (06:58→19:16)
[2017-08-26] MEDS: ISOSORBIDE DINITRATE 10 MG TABLET. PO ×3 (07:30→16:18)
[2017-08-26] MEDS: PANTOPRAZOLE IV PUSH 40 MG VIAL. IVP ×2 (07:46→20:07)
[2017-08-26] MEDS: ALLOPURINOL 300 MG TABLET. PEG (09:00)
[2017-08-26] MEDS: PROPAFENONE 150 MG TABLET. PEG ×3 (09:00→20:43)
[2017-08-26] MEDS: ASPIRIN CHEWABLE 81 MG TABLET. PEG (09:00)
[2017-08-26] MEDS: FERROUS SULFATE ORAL 300 MG/5 ML SOLUTION. PEG ×3 (09:00→20:42)
[2017-08-26] MEDS: FOLIC ACID 1 MG TABLET. PEG (09:00)
[2017-08-26] MEDS: METOPROLOL TART IMMED RELEASE 25 MG TABLET. PO ×2 (09:00→20:43)
[2017-08-26] MEDS: POLYVINYL ALCOHOL 1.4% OPHTH SOLUTION 15ML BOTTLE. OU ×2 (11:23→20:45)
[2017-08-26] MEDS: NYSTATIN TOPICAL POWDER 15GM BOTTLE. TP ×2 (11:24→20:44)
[2017-08-26] MEDS ORDERED: LACTOBACILLUS RHAMNOSUS GG 1 CAPSULE. PO (13:00)
[2017-08-26] MEDS: IV 1/2 NORMAL SALINE 1,000 ML IV (14:19)
[2017-08-26] MEDS: ATORVASTATIN CALCIUM 40 MG TABLET. PEG (20:43)
[2017-08-27 05:01] LABS: ANION GAP 14 (6-14); BLOOD UREA NITROGEN 57 mg/dL (7-20); CALCIUM 8.1 mg/dL (8.5-10.1); CARBON DIOXIDE 26 mmol/L (21-32); CHLORIDE 108 mmol/L (98-107); CREATININE 3.6 mg/dL (0.6-1.0); GFR 15.9; GLUCOSE 132 mg/dL (70-99); POTASSIUM 4.4 mmol/L (3.5-5.1); SODIUM 148 mmol/L (136-145)
[2017-08-27] MEDS: IV 1/2 NORMAL SALINE 1,000 ML IV (05:01)
[2017-08-27] MEDS: methylPREDNISolone SOD SUCC PF 40 MG/ML VIAL. IV ×3 (05:58→21:58)
[2017-08-27] MEDS: MEROPENEM 500 MG in IV NORMAL SALINE 50ML 50 ML IV ×3 (05:58→21:58)
[2017-08-27] MEDS: IPRATRPIUM/ALBUTEROL 0.5/2.5MG 3 ML NEBU. NEB ×4 (07:20→19:36)
[2017-08-27] MEDS: ISOSORBIDE DINITRATE 10 MG TABLET. PO ×3 (07:30→16:14)
[2017-08-27] MEDS: NYSTATIN TOPICAL POWDER 15GM BOTTLE. TP ×2 (07:55→20:38)
[2017-08-27] MEDS: POLYVINYL ALCOHOL 1.4% OPHTH SOLUTION 15ML BOTTLE. OU ×2 (07:55→20:38)
[2017-08-27] MEDS: ASPIRIN CHEWABLE 81 MG TABLET. PEG (08:44)
[2017-08-27] MEDS: FOLIC ACID 1 MG TABLET. PEG (08:44)
[2017-08-27] MEDS: PROPAFENONE 150 MG TABLET. PEG ×3 (08:44→20:39)
[2017-08-27] MEDS: FERROUS SULFATE ORAL 300 MG/5 ML SOLUTION. PEG ×3 (08:44→20:39)
[2017-08-27] MEDS: ALLOPURINOL 300 MG TABLET. PEG (08:44)
[2017-08-27] MEDS: METOPROLOL TART IMMED RELEASE 25 MG TABLET. PO ×2 (08:45→20:39)
[2017-08-27] MEDS: AMINO AC 3%/ELECTROLYTE/GLYCER 1,000 ML IV (12:06)
[2017-08-27] MEDS: FAMOTIDINE 20 MG/2 ML VIAL IVP (15:44)
[2017-08-27] MEDS: FLUOCINONIDE 0.05% TOPICAL CREAM 15 GM TUBE. TP (20:38)
[2017-08-27] MEDS: ATORVASTATIN CALCIUM 40 MG TABLET. PEG (20:39)
[2017-08-28] MEDS: AMINO AC 3%/ELECTROLYTE/GLYCER 1,000 ML IV ×3 (02:06→23:11)
[2017-08-28 05:28] LABS: HEMOGLOBIN 7.8 g/dL (12.0-15.5); MEAN CORPUSCULAR HEMOGLOBIN 31 pg (25-35); MEAN CORPUSCULAR HGB CONC 33 g/dL (31-37); MEAN CORPUSCULAR VOLUME 94 fL (79-100); PLATELET COUNT 126 x10^3/uL (140-400); RED BLOOD COUNT 2.56 x10^6/uL (3.50-5.40); RED CELL DISTRIBUTION WIDTH 18.8 % (11.5-14.5); WHITE BLOOD COUNT 8.8 x10^3/uL (4.0-11.0)
[2017-08-28 05:43] LABS: INR 1.2 (0.8-1.1); PARTIAL THROMBOPLASTIN TIME 33 SEC (24-38); PROTHROMBIN TIME PATIENT 14.5 SEC (11.7-14.0)
[2017-08-28] MEDS: MEROPENEM 500 MG in IV NORMAL SALINE 50ML 50 ML IV ×3 (05:50→22:00)
[2017-08-28] MEDS: methylPREDNISolone SOD SUCC PF 40 MG/ML VIAL. IV ×3 (05:51→22:03)
[2017-08-28 05:52] LABS: ALBUMIN 1.9 g/dL (3.4-5.0); ALBUMIN/GLOBULIN RATIO 0.4 (1.0-1.7); ALK PHOS 201 U/L (46-116); ALT (SGPT) 25 U/L (14-59); ANION GAP 10 (6-14); AST (SGOT) 33 U/L (15-37); BLOOD UREA NITROGEN 65 mg/dL (7-20); BUN/CREATININE RATIO 17 (6-20); CALCIUM 8.2 mg/dL (8.5-10.1); CARBON DIOXIDE 28 mmol/L (21-32); CHLORIDE 108 mmol/L (98-107); CREATININE 3.9 mg/dL (0.6-1.0); GFR 14.5; GLUCOSE 145 mg/dL (70-99); POTASSIUM 4.4 mmol/L (3.5-5.1); SODIUM 146 mmol/L (136-145); TOTAL BILIRUBIN 1.1 mg/dL (0.2-1.0); TOTAL PROTEIN 6.7 g/dL (6.4-8.2)
[2017-08-28] MEDS: ISOSORBIDE DINITRATE 10 MG TABLET. PO ×3 (07:09→11:14)
[2017-08-28] MEDS: ASPIRIN CHEWABLE 81 MG TABLET. PEG (07:09)
[2017-08-28] MEDS: FERROUS SULFATE ORAL 300 MG/5 ML SOLUTION. PEG ×3 (07:20→21:00)
[2017-08-28] MEDS: PROPAFENONE 150 MG TABLET. PEG ×3 (07:20→21:00)
[2017-08-28] MEDS: ALLOPURINOL 300 MG TABLET. PEG (07:20)
[2017-08-28] MEDS: METOPROLOL TART IMMED RELEASE 25 MG TABLET. PO ×2 (07:20→22:09)
[2017-08-28] MEDS: FOLIC ACID 1 MG TABLET. PEG (07:20)
[2017-08-28] MEDS: IPRATRPIUM/ALBUTEROL 0.5/2.5MG 3 ML NEBU. NEB ×4 (07:31→20:01)
[2017-08-28] MEDS: FAMOTIDINE 20 MG/2 ML VIAL IVP (08:38)
[2017-08-28] MEDS: NYSTATIN TOPICAL POWDER 15GM BOTTLE. TP ×2 (08:38→22:02)
[2017-08-28] MEDS: POLYVINYL ALCOHOL 1.4% OPHTH SOLUTION 15ML BOTTLE. OU ×3 (08:38→22:08)
[2017-08-28] MEDS: FUROSEMIDE 40 MG/4 ML VIAL. IVP (12:14)
[2017-08-28] MEDS: ATORVASTATIN CALCIUM 40 MG TABLET. PEG (21:00)
[2017-08-29] MEDS: ALBUTEROL SULFATE 2.5 MG/3 ML NEBU. NEB (03:47)
[2017-08-29 06:10] LABS: HEMOGLOBIN 8.4 g/dL (12.0-15.5)
[2017-08-29 06:10] LABS: HEMATOCRIT 25.6 % (36.0-47.0)
[2017-08-29 06:22] LABS: ANION GAP 13 (6-14); BLOOD UREA NITROGEN 74 mg/dL (7-20); CALCIUM 8.9 mg/dL (8.5-10.1); CARBON DIOXIDE 25 mmol/L (21-32); CHLORIDE 104 mmol/L (98-107); CREATININE 3.7 mg/dL (0.6-1.0); GFR 15.4; GLUCOSE 149 mg/dL (70-99); MAGNESIUM 2.1 mg/dL (1.8-2.4); POTASSIUM 4.7 mmol/L (3.5-5.1); SODIUM 142 mmol/L (136-145)
[2017-08-29] MEDS: methylPREDNISolone SOD SUCC PF 40 MG/ML VIAL. IV ×3 (06:30→23:11)
[2017-08-29] MEDS: MEROPENEM 500 MG in IV NORMAL SALINE 50ML 50 ML IV ×3 (06:30→23:12)
[2017-08-29] MEDS: ISOSORBIDE DINITRATE 10 MG TABLET. PO ×3 (07:04→10:09)
[2017-08-29] MEDS: ASPIRIN CHEWABLE 81 MG TABLET. PEG (07:04)
[2017-08-29] MEDS: PROPAFENONE 150 MG TABLET. PEG ×3 (07:05→20:10)
[2017-08-29] MEDS: FOLIC ACID 1 MG TABLET. PEG (07:05)
[2017-08-29] MEDS: ALLOPURINOL 300 MG TABLET. PEG (07:05)
[2017-08-29] MEDS: FERROUS SULFATE ORAL 300 MG/5 ML SOLUTION. PEG ×3 (07:05→20:10)
[2017-08-29] MEDS: METOPROLOL TART IMMED RELEASE 25 MG TABLET. PO ×2 (07:05→20:10)
[2017-08-29] MEDS: IPRATRPIUM/ALBUTEROL 0.5/2.5MG 3 ML NEBU. NEB ×4 (07:34→19:29)
[2017-08-29] MEDS: AMINO AC 3%/ELECTROLYTE/GLYCER 1,000 ML IV ×2 (07:52→15:59)
[2017-08-29] MEDS: NYSTATIN TOPICAL POWDER 15GM BOTTLE. TP ×2 (07:56→23:12)
[2017-08-29] MEDS: POLYVINYL ALCOHOL 1.4% OPHTH SOLUTION 15ML BOTTLE. OU ×2 (07:56→23:11)
[2017-08-29] MEDS: FAMOTIDINE 20 MG/2 ML VIAL IVP (07:57)
[2017-08-29] MEDS: fentaNYL PF VIAL 100 MCG/2 ML VIAL IV ×2 (08:00→23:24)
[2017-08-29] MEDS: FUROSEMIDE 40 MG/4 ML VIAL. IVP (11:48)
[2017-08-29] MEDS: ATORVASTATIN CALCIUM 40 MG TABLET. PEG (20:10)
[2017-08-30] MEDS: AMINO AC 3%/ELECTROLYTE/GLYCER 1,000 ML IV ×3 (03:35→21:07)
[2017-08-30] MEDS: methylPREDNISolone SOD SUCC PF 40 MG/ML VIAL. IV ×2 (05:46→18:10)
[2017-08-30] MEDS: MEROPENEM 500 MG in IV NORMAL SALINE 50ML 50 ML IV ×3 (05:46→22:31)
[2017-08-30] MEDS: fentaNYL PF VIAL 100 MCG/2 ML VIAL IV ×3 (05:47→14:41)
[2017-08-30] MEDS: IV RINGERS,LACTATED 1000ML 1,000 ML IV ×2 (07:24→15:24)
[2017-08-30] MEDS ORDERED: MIDAZOLAM HCL/PF 2 MG/2 ML VIAL. IV (07:30)
[2017-08-30] MEDS ORDERED: LIDOCAINE 1% PF 2 ML VIAL. ID (07:30)
[2017-08-30] MEDS ORDERED: fentaNYL PF VIAL 100 MCG/2 ML VIAL IV ×2 (07:30)
[2017-08-30] MEDS ORDERED: PROPOFOL 20 ML IV (07:46)
[2017-08-30] MEDS: IPRATRPIUM/ALBUTEROL 0.5/2.5MG 3 ML NEBU. NEB ×4 (08:00→19:25)
[2017-08-30] MEDS: POLYVINYL ALCOHOL 1.4% OPHTH SOLUTION 15ML BOTTLE. OU ×2 (09:00→22:31)
[2017-08-30] MEDS: NYSTATIN TOPICAL POWDER 15GM BOTTLE. TP ×2 (09:00→22:31)
[2017-08-30 09:20] LABS: ANION GAP 13 (6-14); BLOOD UREA NITROGEN 85 mg/dL (7-20); CARBON DIOXIDE 25 mmol/L (21-32); CHLORIDE 104 mmol/L (98-107); CREATININE 3.7 mg/dL (0.6-1.0); GFR 15.4; GLUCOSE 148 mg/dL (70-99); SODIUM 142 mmol/L (136-145)
[2017-08-30 09:20] LABS: MAGNESIUM 2.3 mg/dL (1.8-2.4)
[2017-08-30] MEDS: FAMOTIDINE 20 MG/2 ML VIAL IVP (10:47)
[2017-08-30] MEDS: FERROUS SULFATE ORAL 300 MG/5 ML SOLUTION. PEG ×3 (10:47→22:33)
[2017-08-30] MEDS: ISOSORBIDE DINITRATE 10 MG TABLET. PO ×3 (10:47→15:41)
[2017-08-30] MEDS: ALLOPURINOL 300 MG TABLET. PEG (10:47)
[2017-08-30] MEDS: PROPAFENONE 150 MG TABLET. PEG ×3 (10:48→22:29)
[2017-08-30] MEDS: METOPROLOL TART IMMED RELEASE 25 MG TABLET. PO ×2 (10:49→22:27)
[2017-08-30] MEDS: FOLIC ACID 1 MG TABLET. PEG (10:49)
[2017-08-30] MEDS: ASPIRIN CHEWABLE 81 MG TABLET. PEG (10:49)
[2017-08-30] MEDS: oxyCODONE/APAP 5/325 1 TAB TABLET PO ×2 (18:10→22:30)
[2017-08-30] MEDS: ATORVASTATIN CALCIUM 40 MG TABLET. PEG (22:27)
[2017-08-31] MEDS: MEROPENEM 500 MG in IV NORMAL SALINE 50ML 50 ML IV ×3 (05:50→22:00)
[2017-08-31] MEDS: oxyCODONE/APAP 5/325 1 TAB TABLET PO ×2 (05:50→23:04)
[2017-08-31] MEDS: methylPREDNISolone SOD SUCC PF 40 MG/ML VIAL. IV ×2 (05:51→17:43)
[2017-08-31] MEDS: NYSTATIN TOPICAL POWDER 15GM BOTTLE. TP ×2 (08:48→23:12)
[2017-08-31] MEDS: ALLOPURINOL 300 MG TABLET. PEG (08:49)
[2017-08-31] MEDS: POLYVINYL ALCOHOL 1.4% OPHTH SOLUTION 15ML BOTTLE. OU ×2 (08:49→21:30)
[2017-08-31] MEDS: ISOSORBIDE DINITRATE 10 MG TABLET. PO ×3 (08:49→17:44)
[2017-08-31] MEDS: LANSOPRAZOLE 30 MG TAB.RAP.DR FT (08:49)
[2017-08-31] MEDS: METOPROLOL TART IMMED RELEASE 25 MG TABLET. PO ×2 (08:50→23:05)
[2017-08-31] MEDS: ASPIRIN CHEWABLE 81 MG TABLET. PEG (08:50)
[2017-08-31] MEDS: PROPAFENONE 150 MG TABLET. PEG ×3 (08:50→23:04)
[2017-08-31] MEDS: FOLIC ACID 1 MG TABLET. PEG (08:51)
[2017-08-31] MEDS: IPRATRPIUM/ALBUTEROL 0.5/2.5MG 3 ML NEBU. NEB ×4 (09:02→20:08)
[2017-08-31 09:14] LABS: ANION GAP 15 (6-14); BLOOD UREA NITROGEN 91 mg/dL (7-20); CALCIUM 8.2 mg/dL (8.5-10.1); CARBON DIOXIDE 24 mmol/L (21-32); CHLORIDE 101 mmol/L (98-107); CREATININE 3.6 mg/dL (0.6-1.0); GFR 15.9; GLUCOSE 155 mg/dL (70-99); SODIUM 140 mmol/L (136-145)
[2017-08-31] MEDS: POLYETHYLENE GLYCOL 3350 17 GM PACKET. PEG (12:45)
[2017-08-31] MEDS: FERROUS SULFATE ORAL 300 MG/5 ML SOLUTION. PEG ×3 (12:46→23:03)
[2017-08-31] MEDS: VITS A & D/LANOLIN TOPICAL OINTMENT 56GM TUBE. TP ×2 (16:45→23:12)
[2017-08-31] MEDS ORDERED: ONDANSETRON PF 4 MG/2 ML VIAL. IV (19:30)
[2017-08-31] MEDS: ATORVASTATIN CALCIUM 40 MG TABLET. PEG (23:04)
[2017-09-01 06:07] LABS: HEMATOCRIT 27.6 % (36.0-47.0); MEAN CORPUSCULAR HEMOGLOBIN 30 pg (25-35); MEAN CORPUSCULAR HGB CONC 32 g/dL (31-37); MEAN CORPUSCULAR VOLUME 93 fL (79-100); PLATELET COUNT 81 x10^3/uL (140-400); RED BLOOD COUNT 2.96 x10^6/uL (3.50-5.40); RED CELL DISTRIBUTION WIDTH 18.9 % (11.5-14.5); WHITE BLOOD COUNT 10.7 x10^3/uL (4.0-11.0)
[2017-09-01 06:29] LABS: ANION GAP 13 (6-14); BLOOD UREA NITROGEN 92 mg/dL (7-20); CALCIUM 8.8 mg/dL (8.5-10.1); CARBON DIOXIDE 22 mmol/L (21-32); CHLORIDE 103 mmol/L (98-107); CREATININE 3.6 mg/dL (0.6-1.0); GFR 15.9; GLUCOSE 115 mg/dL (70-99); POTASSIUM 4.6 mmol/L (3.5-5.1); SODIUM 138 mmol/L (136-145)
[2017-09-01] MEDS: MEROPENEM 500 MG in IV NORMAL SALINE 50ML 50 ML IV ×3 (07:18→23:51)
[2017-09-01] MEDS: methylPREDNISolone SOD SUCC PF 40 MG/ML VIAL. IV ×2 (07:19→17:50)
[2017-09-01] MEDS: ASPIRIN CHEWABLE 81 MG TABLET. PEG (08:49)
[2017-09-01] MEDS: ISOSORBIDE DINITRATE 10 MG TABLET. PO ×3 (08:50→17:50)
[2017-09-01] MEDS: METOPROLOL TART IMMED RELEASE 25 MG TABLET. PO ×2 (08:50→21:23)
[2017-09-01] MEDS: PROPAFENONE 150 MG TABLET. PEG ×3 (08:50→21:23)
[2017-09-01] MEDS: LANSOPRAZOLE 30 MG TAB.RAP.DR FT (08:50)
[2017-09-01] MEDS: POLYETHYLENE GLYCOL 3350 17 GM PACKET. PEG (08:51)
[2017-09-01] MEDS: NYSTATIN TOPICAL POWDER 15GM BOTTLE. TP ×2 (08:51→21:24)
[2017-09-01] MEDS: VITS A & D/LANOLIN TOPICAL OINTMENT 56GM TUBE. TP ×3 (08:51→21:23)
[2017-09-01] MEDS: FOLIC ACID 1 MG TABLET. PEG (08:51)
[2017-09-01] MEDS: FERROUS SULFATE ORAL 300 MG/5 ML SOLUTION. PEG ×3 (08:51→21:23)
[2017-09-01] MEDS: POLYVINYL ALCOHOL 1.4% OPHTH SOLUTION 15ML BOTTLE. OU ×2 (08:51→21:22)
[2017-09-01] MEDS: ALLOPURINOL 100 MG TABLET. PEG (08:51)
[2017-09-01] MEDS: IPRATRPIUM/ALBUTEROL 0.5/2.5MG 3 ML NEBU. NEB ×4 (08:53→19:26)
[2017-09-01] MEDS ORDERED: LIDOCAINE WITH 8.4% SOD BICARB 3 ML DISP.SYRIN. (10:29)
[2017-09-01] MEDS: LIDOCAINE WITH 8.4% SOD BICARB 3 ML DISP.SYRIN. IJ (10:30)
[2017-09-01] MEDS ORDERED: HEPARIN for IV BOLUS 10,000 UNIT/10 ML VIAL. (10:30)
[2017-09-01] MEDS: oxyCODONE/APAP 5/325 1 TAB TABLET PO (12:58)
[2017-09-01] MEDS ORDERED: IV NORMAL SALINE 1000ML BAG 1,000 ML IV ×2 (13:35)
[2017-09-01] MEDS ORDERED: cloNIDine HCL 0.1 MG TABLET PO (13:45)
[2017-09-01] MEDS ORDERED: diphenhydrAMINE 50 MG/ML VIAL IV ×2 (13:45)
[2017-09-01] MEDS ORDERED: ACETAMINOPHEN 500 MG TABLET PO (13:45)
[2017-09-01] MEDS ORDERED: DIALYSIS PATIENT. MC (13:45)
[2017-09-01] MEDS ORDERED: LABETALOL 20 MG/4 ML DISP.SYRIN. IVP (13:45)
[2017-09-01] MEDS ORDERED: ALBUMIN HUMAN 25% 200 ML IV (13:45)
[2017-09-01] MEDS: DARBEPOETIN ALFA 60 MCG/0.3 ML DISP.SYRIN. SQ (21:22)
[2017-09-01] MEDS: ATORVASTATIN CALCIUM 40 MG TABLET. PEG (21:23)
[2017-09-02 00:09] LABS: POC GLUCOSE 95 mg/dL (70-99)
[2017-09-02] MEDS: MEROPENEM 500 MG in IV NORMAL SALINE 50ML 50 ML IV (05:26)
[2017-09-02] MEDS: methylPREDNISolone SOD SUCC PF 40 MG/ML VIAL. IV ×2 (05:26→17:59)
[2017-09-02 06:23] LABS: POC GLUCOSE 99 mg/dL (70-99)
[2017-09-02] MEDS: IPRATRPIUM/ALBUTEROL 0.5/2.5MG 3 ML NEBU. NEB ×4 (07:24→18:54)
[2017-09-02] MEDS: ALLOPURINOL 100 MG TABLET. PEG (08:35)
[2017-09-02] MEDS: POLYETHYLENE GLYCOL 3350 17 GM PACKET. PEG (08:35)
[2017-09-02] MEDS: PROPAFENONE 150 MG TABLET. PEG ×3 (08:36→19:56)
[2017-09-02] MEDS: LANSOPRAZOLE 30 MG TAB.RAP.DR FT (08:36)
[2017-09-02] MEDS: ASPIRIN CHEWABLE 81 MG TABLET. PEG (08:36)
[2017-09-02] MEDS: METOPROLOL TART IMMED RELEASE 25 MG TABLET. PO ×2 (08:37→19:55)
[2017-09-02] MEDS: VITS A & D/LANOLIN TOPICAL OINTMENT 56GM TUBE. TP ×3 (08:38→19:56)
[2017-09-02] MEDS: FLUOCINONIDE 0.05% TOPICAL CREAM 15 GM TUBE. TP (08:38)
[2017-09-02] MEDS: NYSTATIN TOPICAL POWDER 15GM BOTTLE. TP ×2 (08:38→19:56)
[2017-09-02] MEDS: FERROUS SULFATE ORAL 300 MG/5 ML SOLUTION. PEG ×3 (08:38→19:54)
[2017-09-02] MEDS: POLYVINYL ALCOHOL 1.4% OPHTH SOLUTION 15ML BOTTLE. OU ×2 (08:38→19:55)
[2017-09-02] MEDS: ISOSORBIDE DINITRATE 10 MG TABLET. PO ×3 (08:38→17:58)
[2017-09-02] MEDS: FOLIC ACID 1 MG TABLET. PEG (08:38)
[2017-09-02] MEDS ORDERED: IV NORMAL SALINE 1000ML BAG 1,000 ML IV (08:58)
[2017-09-02] MEDS ORDERED: ALBUMIN HUMAN 25% 200 ML IV (09:00)
[2017-09-02] MEDS ORDERED: DIALYSIS PATIENT. MC (09:00)
[2017-09-02 09:44] LABS: HEMATOCRIT 24.1 % (36.0-47.0); HEMOGLOBIN 7.9 g/dL (12.0-15.5); MEAN CORPUSCULAR HEMOGLOBIN 30 pg (25-35); MEAN CORPUSCULAR HGB CONC 33 g/dL (31-37); MEAN CORPUSCULAR VOLUME 91 fL (79-100); PLATELET COUNT 60 x10^3/uL (140-400); RED BLOOD COUNT 2.65 x10^6/uL (3.50-5.40); RED CELL DISTRIBUTION WIDTH 18.4 % (11.5-14.5); WHITE BLOOD COUNT 6.1 x10^3/uL (4.0-11.0)
[2017-09-02 10:05] LABS: ANION GAP 8 (6-14); BLOOD UREA NITROGEN 35 mg/dL (7-20); CALCIUM 7.9 mg/dL (8.5-10.1); CARBON DIOXIDE 29 mmol/L (21-32); CHLORIDE 105 mmol/L (98-107); CREATININE 1.8 mg/dL (0.6-1.0); GFR 35.5; GLUCOSE 110 mg/dL (70-99); POTASSIUM 3.8 mmol/L (3.5-5.1); SODIUM 142 mmol/L (136-145)
[2017-09-02 14:46] LABS: % SAT IRON 87 % (15-34); IRON,SERUM 194 ug/dL (50-170)
[2017-09-02 15:25] LABS: FERRITIN 1417 ng/mL (8-252)
[2017-09-02 17:57] LABS: POC GLUCOSE 92 mg/dL (70-99)
[2017-09-02] MEDS: ATORVASTATIN CALCIUM 40 MG TABLET. PEG (19:55)
[2017-09-03 00:07] LABS: HEP B SURFACE ABDY Non Reactive (.); HEP B SURFACE AG Negative (Negative)
[2017-09-03] MEDS: methylPREDNISolone SOD SUCC PF 40 MG/ML VIAL. IV ×2 (05:08→18:28)
[2017-09-03] MEDS: IPRATRPIUM/ALBUTEROL 0.5/2.5MG 3 ML NEBU. NEB ×4 (07:26→19:16)
[2017-09-03] MEDS: MEROPENEM 500 MG in IV NORMAL SALINE 50ML 50 ML IV (08:17)
[2017-09-03] MEDS: ISOSORBIDE DINITRATE 10 MG TABLET. PO ×3 (08:25→18:29)
[2017-09-03] MEDS: ASPIRIN CHEWABLE 81 MG TABLET. PEG (08:25)
[2017-09-03] MEDS: LANSOPRAZOLE 30 MG TAB.RAP.DR FT (08:26)
[2017-09-03] MEDS: FOLIC ACID 1 MG TABLET. PEG (08:26)
[2017-09-03] MEDS: ALLOPURINOL 100 MG TABLET. PEG (08:26)
[2017-09-03] MEDS: PROPAFENONE 150 MG TABLET. PEG ×3 (08:26→21:48)
[2017-09-03] MEDS: NYSTATIN TOPICAL POWDER 15GM BOTTLE. TP ×2 (08:27→21:49)
[2017-09-03] MEDS: METOPROLOL TART IMMED RELEASE 25 MG TABLET. PO ×2 (08:27→21:47)
[2017-09-03] MEDS: POLYVINYL ALCOHOL 1.4% OPHTH SOLUTION 15ML BOTTLE. OU ×2 (08:27→21:49)
[2017-09-03] MEDS: VITS A & D/LANOLIN TOPICAL OINTMENT 56GM TUBE. TP ×3 (08:28→21:49)
[2017-09-03] MEDS: FERROUS SULFATE ORAL 300 MG/5 ML SOLUTION. PEG ×3 (08:31→21:44)
[2017-09-03] MEDS: POLYETHYLENE GLYCOL 3350 17 GM PACKET. PEG (08:32)
[2017-09-03 12:10] LABS: POC GLUCOSE 129 mg/dL (70-99)
[2017-09-03 12:57] LABS: HEMATOCRIT 29.4 % (36.0-47.0); HEMOGLOBIN 9.6 g/dL (12.0-15.5); MEAN CORPUSCULAR HEMOGLOBIN 30 pg (25-35); MEAN CORPUSCULAR HGB CONC 33 g/dL (31-37); MEAN CORPUSCULAR VOLUME 93 fL (79-100); PLATELET COUNT 59 x10^3/uL (140-400); RED BLOOD COUNT 3.17 x10^6/uL (3.50-5.40); RED CELL DISTRIBUTION WIDTH 18.7 % (11.5-14.5); WHITE BLOOD COUNT 10.4 x10^3/uL (4.0-11.0)
[2017-09-03] MEDS: oxyCODONE/APAP 5/325 1 TAB TABLET PO (18:29)
[2017-09-03 18:32] LABS: POC GLUCOSE 109 mg/dL (70-99)
[2017-09-03] MEDS: ATORVASTATIN CALCIUM 40 MG TABLET. PEG (21:48)
[2017-09-04 00:21] LABS: POC GLUCOSE 123 mg/dL (70-99)
[2017-09-04 06:11] LABS: HEMATOCRIT 25.7 % (36.0-47.0); HEMOGLOBIN 8.6 g/dL (12.0-15.5); MEAN CORPUSCULAR HEMOGLOBIN 30 pg (25-35); MEAN CORPUSCULAR HGB CONC 33 g/dL (31-37); MEAN CORPUSCULAR VOLUME 91 fL (79-100); PLATELET COUNT 71 x10^3/uL (140-400); RED BLOOD COUNT 2.82 x10^6/uL (3.50-5.40); RED CELL DISTRIBUTION WIDTH 18.3 % (11.5-14.5); WHITE BLOOD COUNT 9.4 x10^3/uL (4.0-11.0)
[2017-09-04] MEDS: methylPREDNISolone SOD SUCC PF 40 MG/ML VIAL. IV ×2 (06:13→18:13)
[2017-09-04 06:20] LABS: ALBUMIN 2.2 g/dL (3.4-5.0); ALBUMIN/GLOBULIN RATIO 0.6 (1.0-1.7); ALK PHOS 277 U/L (46-116); ALT (SGPT) 55 U/L (14-59); ANION GAP 10 (6-14); AST (SGOT) 73 U/L (15-37); BLOOD UREA NITROGEN 45 mg/dL (7-20); BUN/CREATININE RATIO 21 (6-20); CALCIUM 8.6 mg/dL (8.5-10.1); CARBON DIOXIDE 28 mmol/L (21-32); CHLORIDE 103 mmol/L (98-107); CREATININE 2.1 mg/dL (0.6-1.0); GFR 29.7; GLUCOSE 132 mg/dL (70-99); POTASSIUM 4.2 mmol/L (3.5-5.1); SODIUM 141 mmol/L (136-145); TOTAL BILIRUBIN 1.2 mg/dL (0.2-1.0)
[2017-09-04] MEDS ORDERED: IV NORMAL SALINE 1000ML BAG 1,000 ML IV ×2 (07:35)
[2017-09-04] MEDS: ISOSORBIDE DINITRATE 10 MG TABLET. PO ×3 (07:40→18:14)
[2017-09-04] MEDS ORDERED: ACETAMINOPHEN 500 MG TABLET PO (07:45)
[2017-09-04] MEDS ORDERED: 0.9 % SODIUM CHLORIDE 10 ML DISP.SYRIN. IV ×2 (07:45)
[2017-09-04] MEDS ORDERED: diphenhydrAMINE 50 MG/ML VIAL IV ×2 (07:45)
[2017-09-04] MEDS ORDERED: DIALYSIS PATIENT. MC (07:45)
[2017-09-04] MEDS: VITS A & D/LANOLIN TOPICAL OINTMENT 56GM TUBE. TP ×3 (09:00→21:37)
[2017-09-04] MEDS: FERROUS SULFATE ORAL 300 MG/5 ML SOLUTION. PEG ×3 (09:00→21:33)
[2017-09-04] MEDS: PROPAFENONE 150 MG TABLET. PEG ×3 (09:00→21:34)
[2017-09-04] MEDS: METOPROLOL TART IMMED RELEASE 25 MG TABLET. PO ×2 (09:00→21:36)
[2017-09-04] MEDS: IPRATRPIUM/ALBUTEROL 0.5/2.5MG 3 ML NEBU. NEB ×4 (09:06→19:47)
[2017-09-04 09:22] LABS: POC GLUCOSE 115 mg/dL (70-99)
[2017-09-04] MEDS: hydrALAZINE 20 MG/ML VIAL. IVP (10:39)
[2017-09-04 11:11] LABS: VITAMIN-B12 1105 pg/mL (247-911)
[2017-09-04] MEDS: POLYETHYLENE GLYCOL 3350 17 GM PACKET. PEG (11:43)
[2017-09-04] MEDS: POLYVINYL ALCOHOL 1.4% OPHTH SOLUTION 15ML BOTTLE. OU ×2 (11:56→21:33)
[2017-09-04] MEDS: LANSOPRAZOLE 30 MG TAB.RAP.DR FT (11:56)
[2017-09-04] MEDS: ASPIRIN CHEWABLE 81 MG TABLET. PEG (11:57)
[2017-09-04] MEDS: ALLOPURINOL 100 MG TABLET. PEG (11:57)
[2017-09-04] MEDS: FOLIC ACID 1 MG TABLET. PEG (11:57)
[2017-09-04] MEDS: NYSTATIN TOPICAL POWDER 15GM BOTTLE. TP ×2 (11:58→21:36)
[2017-09-04 20:15] LABS: POC GLUCOSE 97 mg/dL (70-99)
[2017-09-04] MEDS: ATORVASTATIN CALCIUM 40 MG TABLET. PEG (21:34)
[2017-09-05] MEDS: methylPREDNISolone SOD SUCC PF 40 MG/ML VIAL. IV ×2 (06:27→17:51)
[2017-09-05 06:38] LABS: POC GLUCOSE 106 mg/dL (70-99)
[2017-09-05] MEDS: POLYETHYLENE GLYCOL 3350 17 GM PACKET. PEG (07:22)
[2017-09-05] MEDS: IPRATRPIUM/ALBUTEROL 0.5/2.5MG 3 ML NEBU. NEB ×4 (08:22→20:05)
[2017-09-05] MEDS: POLYVINYL ALCOHOL 1.4% OPHTH SOLUTION 15ML BOTTLE. OU ×2 (08:27→20:49)
[2017-09-05] MEDS: PROPAFENONE 150 MG TABLET. PEG ×3 (08:28→20:49)
[2017-09-05] MEDS: ASPIRIN CHEWABLE 81 MG TABLET. PEG (08:29)
[2017-09-05] MEDS: LANSOPRAZOLE 30 MG TAB.RAP.DR FT (08:29)
[2017-09-05] MEDS: FOLIC ACID 1 MG TABLET. PEG (08:29)
[2017-09-05] MEDS: METOPROLOL TART IMMED RELEASE 25 MG TABLET. PO ×2 (08:29→20:49)
[2017-09-05] MEDS: VITS A & D/LANOLIN TOPICAL OINTMENT 56GM TUBE. TP ×3 (08:31→20:50)
[2017-09-05] MEDS: ALLOPURINOL 100 MG TABLET. PEG (08:31)
[2017-09-05] MEDS: FERROUS SULFATE ORAL 300 MG/5 ML SOLUTION. PEG ×3 (08:31→20:49)
[2017-09-05] MEDS: ISOSORBIDE DINITRATE 10 MG TABLET. PO ×3 (08:31→17:51)
[2017-09-05] MEDS: NYSTATIN TOPICAL POWDER 15GM BOTTLE. TP ×2 (08:32→20:50)
[2017-09-05] MEDS: ATORVASTATIN CALCIUM 40 MG TABLET. PEG (20:49)
[2017-09-05 22:17] LABS: C DIFF BY PCR Negative (Negative)
[2017-09-06 00:31] LABS: POC GLUCOSE 106 mg/dL (70-99)
[2017-09-06 04:38] LABS: MEAN CORPUSCULAR HEMOGLOBIN 30 pg (25-35); MEAN CORPUSCULAR HGB CONC 33 g/dL (31-37); MEAN CORPUSCULAR VOLUME 91 fL (79-100); PLATELET COUNT 68 x10^3/uL (140-400); RED BLOOD COUNT 2.26 x10^6/uL (3.50-5.40); RED CELL DISTRIBUTION WIDTH 18.4 % (11.5-14.5); WHITE BLOOD COUNT 11.9 x10^3/uL (4.0-11.0)
[2017-09-06 04:43] LABS: HEMATOCRIT 20.5 % (36.0-47.0); HEMOGLOBIN 6.9 g/dL (12.0-15.5)
[2017-09-06 04:55] LABS: ANION GAP 7 (6-14); BLOOD UREA NITROGEN 38 mg/dL (7-20); CALCIUM 8.6 mg/dL (8.5-10.1); CARBON DIOXIDE 29 mmol/L (21-32); CHLORIDE 103 mmol/L (98-107); GFR 31.4; GLUCOSE 149 mg/dL (70-99); PHOSPHORUS 2.6 mg/dL (2.6-4.7); POTASSIUM 4.4 mmol/L (3.5-5.1); SODIUM 139 mmol/L (136-145)
[2017-09-06] MEDS: methylPREDNISolone SOD SUCC PF 40 MG/ML VIAL. IV ×2 (05:28→17:40)
[2017-09-06 05:36] LABS: POC GLUCOSE 136 mg/dL (70-99)
[2017-09-06] MEDS: IPRATRPIUM/ALBUTEROL 0.5/2.5MG 3 ML NEBU. NEB ×4 (07:34→19:23)
[2017-09-06] MEDS: POLYETHYLENE GLYCOL 3350 17 GM PACKET. PEG (09:00)
[2017-09-06] MEDS: POLYVINYL ALCOHOL 1.4% OPHTH SOLUTION 15ML BOTTLE. OU ×2 (10:10→21:57)
[2017-09-06] MEDS: PROPAFENONE 150 MG TABLET. PEG ×3 (10:11→21:57)
[2017-09-06] MEDS: ALLOPURINOL 100 MG TABLET. PEG (10:11)
[2017-09-06] MEDS: LANSOPRAZOLE 30 MG TAB.RAP.DR FT (10:12)
[2017-09-06] MEDS: ASPIRIN CHEWABLE 81 MG TABLET. PEG (10:12)
[2017-09-06] MEDS: FOLIC ACID 1 MG TABLET. PEG (10:12)
[2017-09-06] MEDS: oxyCODONE/APAP 5/325 1 TAB TABLET PO (10:13)
[2017-09-06] MEDS: FERROUS SULFATE ORAL 300 MG/5 ML SOLUTION. PEG ×3 (10:14→21:57)
[2017-09-06] MEDS: ISOSORBIDE DINITRATE 10 MG TABLET. PO ×3 (10:15→16:30)
[2017-09-06] MEDS: METOPROLOL TART IMMED RELEASE 25 MG TABLET. PO ×2 (10:16→21:57)
[2017-09-06] MEDS: VITS A & D/LANOLIN TOPICAL OINTMENT 56GM TUBE. TP ×3 (10:18→21:58)
[2017-09-06] MEDS: NYSTATIN TOPICAL POWDER 15GM BOTTLE. TP ×2 (10:18→21:57)
[2017-09-06 18:15] LABS: IMMEDIATE SPIN CROSSMATCH 1 1
[2017-09-06] MEDS ORDERED: DIALYSIS PATIENT. MC ×2 (18:15)
[2017-09-06 19:30] LABS: POC GLUCOSE 103 mg/dL (70-99)
[2017-09-06] MEDS: ATORVASTATIN CALCIUM 40 MG TABLET. PEG (21:57)
[2017-09-07 05:21] LABS: HEMATOCRIT 24.5 % (36.0-47.0); HEMOGLOBIN 8.4 g/dL (12.0-15.5); MEAN CORPUSCULAR HEMOGLOBIN 31 pg (25-35); MEAN CORPUSCULAR HGB CONC 34 g/dL (31-37); MEAN CORPUSCULAR VOLUME 90 fL (79-100); PLATELET COUNT 76 x10^3/uL (140-400); RED BLOOD COUNT 2.74 x10^6/uL (3.50-5.40); RED CELL DISTRIBUTION WIDTH 17.6 % (11.5-14.5); WHITE BLOOD COUNT 11.3 x10^3/uL (4.0-11.0)
[2017-09-07] MEDS: methylPREDNISolone SOD SUCC PF 40 MG/ML VIAL. IV ×2 (06:02→18:16)
[2017-09-07 06:31] LABS: POC GLUCOSE 125 mg/dL (70-99)
[2017-09-07] MEDS: IPRATRPIUM/ALBUTEROL 0.5/2.5MG 3 ML NEBU. NEB ×4 (06:56→19:41)
[2017-09-07] MEDS: oxyCODONE/APAP 5/325 1 TAB TABLET PO ×2 (10:52→18:19)
[2017-09-07] MEDS: POLYETHYLENE GLYCOL 3350 17 GM PACKET. PEG (10:52)
[2017-09-07] MEDS: LANSOPRAZOLE 30 MG TAB.RAP.DR FT (10:53)
[2017-09-07] MEDS: ISOSORBIDE DINITRATE 10 MG TABLET. PO ×3 (10:53→18:20)
[2017-09-07] MEDS: PROPAFENONE 150 MG TABLET. PEG ×3 (10:53→21:03)
[2017-09-07] MEDS: ALLOPURINOL 100 MG TABLET. PEG (10:53)
[2017-09-07] MEDS: FOLIC ACID 1 MG TABLET. PEG (10:53)
[2017-09-07] MEDS: ASPIRIN CHEWABLE 81 MG TABLET. PEG (10:53)
[2017-09-07] MEDS: NYSTATIN TOPICAL POWDER 15GM BOTTLE. TP ×2 (10:54→21:06)
[2017-09-07] MEDS: POLYVINYL ALCOHOL 1.4% OPHTH SOLUTION 15ML BOTTLE. OU ×2 (10:54→21:07)
[2017-09-07] MEDS: METOPROLOL TART IMMED RELEASE 25 MG TABLET. PO ×2 (10:54→21:05)
[2017-09-07] MEDS: VITS A & D/LANOLIN TOPICAL OINTMENT 56GM TUBE. TP ×3 (10:55→21:06)
[2017-09-07] MEDS: FERROUS SULFATE ORAL 300 MG/5 ML SOLUTION. PEG ×3 (10:55→21:04)
[2017-09-07 12:25] LABS: POC GLUCOSE 92 mg/dL (70-99)
[2017-09-07] MEDS: DEXTROSE 50% 25 GM / 50ML DISP.SYRIN. IV (18:15)
[2017-09-07 18:41] LABS: POC GLUCOSE 105 mg/dL (70-99)
[2017-09-07 18:41] LABS: POC GLUCOSE 67 mg/dL (70-99)
[2017-09-07] MEDS: ATORVASTATIN CALCIUM 40 MG TABLET. PEG (21:04)
[2017-09-08 00:54] LABS: POC GLUCOSE 115 mg/dL (70-99)
[2017-09-08] MEDS: methylPREDNISolone SOD SUCC PF 40 MG/ML VIAL. IV ×2 (06:27→20:27)
[2017-09-08] MEDS: IPRATRPIUM/ALBUTEROL 0.5/2.5MG 3 ML NEBU. NEB ×4 (07:21→19:43)
[2017-09-08] MEDS: POLYETHYLENE GLYCOL 3350 17 GM PACKET. PEG (08:33)
[2017-09-08] MEDS: oxyCODONE/APAP 5/325 1 TAB TABLET PO ×4 (08:34→20:28)
[2017-09-08] MEDS: FERROUS SULFATE ORAL 300 MG/5 ML SOLUTION. PEG ×3 (08:34→20:24)
[2017-09-08] MEDS: PROPAFENONE 150 MG TABLET. PEG ×3 (08:34→20:30)
[2017-09-08] MEDS: METOPROLOL TART IMMED RELEASE 25 MG TABLET. PO ×2 (08:35→20:28)
[2017-09-08] MEDS: ALLOPURINOL 100 MG TABLET. PEG (08:35)
[2017-09-08] MEDS: FOLIC ACID 1 MG TABLET. PEG (08:35)
[2017-09-08] MEDS: POLYVINYL ALCOHOL 1.4% OPHTH SOLUTION 15ML BOTTLE. OU ×2 (08:36→20:27)
[2017-09-08] MEDS: VITS A & D/LANOLIN TOPICAL OINTMENT 56GM TUBE. TP ×2 (08:36→15:56)
[2017-09-08] MEDS: NYSTATIN TOPICAL POWDER 15GM BOTTLE. TP ×2 (08:36→20:27)
[2017-09-08] MEDS: ISOSORBIDE DINITRATE 10 MG TABLET. PO ×3 (08:36→20:29)
[2017-09-08] MEDS: LANSOPRAZOLE 30 MG TAB.RAP.DR FT (08:36)
[2017-09-08] MEDS: ASPIRIN CHEWABLE 81 MG TABLET. PEG (08:36)
[2017-09-08 11:58] LABS: POC GLUCOSE 148 mg/dL (70-99)
[2017-09-08] MEDS: ASCORBIC ACID 500 MG TABLET PO (12:29)
[2017-09-08] MEDS: FOLIC/VIT B COMP W-C (RENAL) TABLET. PO (12:29)
[2017-09-08] MEDS ORDERED: ALBUMIN HUMAN 25% 200 ML IV (16:00)
[2017-09-08] MEDS ORDERED: IV NORMAL SALINE 1000ML BAG 1,000 ML IV (16:00)
[2017-09-08] MEDS ORDERED: DIALYSIS PATIENT. MC ×2 (16:00)
[2017-09-08 18:13] LABS: HEMATOCRIT 24.6 % (36.0-47.0); HEMOGLOBIN 8.3 g/dL (12.0-15.5); MEAN CORPUSCULAR HEMOGLOBIN 30 pg (25-35); MEAN CORPUSCULAR HGB CONC 34 g/dL (31-37); MEAN CORPUSCULAR VOLUME 89 fL (79-100); PLATELET COUNT 130 x10^3/uL (140-400); RED BLOOD COUNT 2.75 x10^6/uL (3.50-5.40); RED CELL DISTRIBUTION WIDTH 17.8 % (11.5-14.5); WHITE BLOOD COUNT 12.8 x10^3/uL (4.0-11.0)
[2017-09-08 18:25] LABS: ALBUMIN 2.3 g/dL (3.4-5.0); ANION GAP 5 (6-14); BLOOD UREA NITROGEN 14 mg/dL (7-20); CALCIUM 8.6 mg/dL (8.5-10.1); CARBON DIOXIDE 34 mmol/L (21-32); CHLORIDE 102 mmol/L (98-107); GFR 69.9; GLUCOSE 124 mg/dL (70-99); PHOSPHORUS 1.6 mg/dL (2.6-4.7); POTASSIUM 4.1 mmol/L (3.5-5.1); SODIUM 141 mmol/L (136-145)
[2017-09-08] MEDS: DARBEPOETIN ALFA 60 MCG/0.3 ML DISP.SYRIN. SQ (20:27)
[2017-09-08] MEDS: ZINC OXIDE 20% TOPICAL OINTMENT 28GM TUBE. TP (20:27)
[2017-09-08] MEDS: ATORVASTATIN CALCIUM 40 MG TABLET. PEG (20:28)
[2017-09-08 23:47] LABS: POC GLUCOSE 155 mg/dL (70-99)
[2017-09-09] MEDS: oxyCODONE/APAP 5/325 1 TAB TABLET PO ×4 (05:34→20:55)
[2017-09-09] MEDS: methylPREDNISolone SOD SUCC PF 40 MG/ML VIAL. IV (05:34)
[2017-09-09 05:52] LABS: POC GLUCOSE 183 mg/dL (70-99)
[2017-09-09 07:04] LABS: THYROID STIM HORMONE (TSH) 1.766 uIU/mL (0.358-3.74)
[2017-09-09] MEDS: IPRATRPIUM/ALBUTEROL 0.5/2.5MG 3 ML NEBU. NEB ×4 (07:08→19:03)
[2017-09-09] MEDS: ISOSORBIDE DINITRATE 10 MG TABLET. PO ×3 (07:30→16:16)
[2017-09-09 07:43] LABS: SEDIMENTATION RATE 80 (0-25)
[2017-09-09] MEDS: FERROUS SULFATE ORAL 300 MG/5 ML SOLUTION. PEG ×3 (09:50→19:31)
[2017-09-09] MEDS: POLYETHYLENE GLYCOL 3350 17 GM PACKET. PEG (09:51)
[2017-09-09] MEDS: LANSOPRAZOLE 30 MG TAB.RAP.DR FT (09:51)
[2017-09-09] MEDS: PROPAFENONE 150 MG TABLET. PEG ×3 (09:52→20:56)
[2017-09-09] MEDS: ASPIRIN CHEWABLE 81 MG TABLET. PEG (09:52)
[2017-09-09] MEDS: FOLIC ACID 1 MG TABLET. PEG (09:53)
[2017-09-09] MEDS: ALLOPURINOL 100 MG TABLET. PEG (09:53)
[2017-09-09] MEDS: POLYVINYL ALCOHOL 1.4% OPHTH SOLUTION 15ML BOTTLE. OU ×2 (09:58→20:55)
[2017-09-09] MEDS: ZINC OXIDE 20% TOPICAL OINTMENT 28GM TUBE. TP ×2 (09:59→20:56)
[2017-09-09] MEDS: NYSTATIN TOPICAL POWDER 15GM BOTTLE. TP ×2 (09:59→20:56)
[2017-09-09] MEDS: FOLIC/VIT B COMP W-C (RENAL) TABLET. PO (10:02)
[2017-09-09] MEDS: METOPROLOL TART IMMED RELEASE 25 MG TABLET. PO ×2 (10:03→20:55)
[2017-09-09] MEDS: ASCORBIC ACID 500 MG TABLET PO (10:04)
[2017-09-09 12:05] LABS: POC GLUCOSE 161 mg/dL (70-99)
[2017-09-09] MEDS: METOCLOPRAMIDE ORAL SOLN 10 MG/10 ML SOLUTION. PO ×3 (12:42→20:55)
[2017-09-09 18:26] LABS: POC GLUCOSE 148 mg/dL (70-99)
[2017-09-09] MEDS: ATORVASTATIN CALCIUM 40 MG TABLET. PEG (20:55)
[2017-09-10 00:48] LABS: POC GLUCOSE 123 mg/dL (70-99)
[2017-09-10] MEDS: oxyCODONE/APAP 5/325 1 TAB TABLET PO ×4 (05:20→20:36)
[2017-09-10] MEDS: METOCLOPRAMIDE ORAL SOLN 10 MG/10 ML SOLUTION. PO ×4 (05:20→20:36)
[2017-09-10] MEDS: ISOSORBIDE DINITRATE 10 MG TABLET. PO ×3 (05:21→16:13)
[2017-09-10] MEDS: IPRATRPIUM/ALBUTEROL 0.5/2.5MG 3 ML NEBU. NEB ×4 (07:13→19:23)
[2017-09-10] MEDS ORDERED: methylPREDNISolone SOD SUCC PF 40 MG/ML VIAL. IV (09:00)
[2017-09-10] MEDS: POLYVINYL ALCOHOL 1.4% OPHTH SOLUTION 15ML BOTTLE. OU ×2 (09:10→21:00)
[2017-09-10] MEDS: ZINC OXIDE 20% TOPICAL OINTMENT 28GM TUBE. TP ×2 (09:10→21:00)
[2017-09-10] MEDS: ASPIRIN CHEWABLE 81 MG TABLET. PEG (09:11)
[2017-09-10] MEDS: methylPREDNISolone SOD SUCC PF 40 MG/ML VIAL. IV (09:11)
[2017-09-10] MEDS: ASCORBIC ACID 500 MG TABLET PO (09:11)
[2017-09-10] MEDS: FERROUS SULFATE ORAL 300 MG/5 ML SOLUTION. PEG ×3 (09:11→20:36)
[2017-09-10] MEDS: PROPAFENONE 150 MG TABLET. PEG ×3 (09:12→20:37)
[2017-09-10] MEDS: ALLOPURINOL 100 MG TABLET. PEG (09:12)
[2017-09-10] MEDS: POLYETHYLENE GLYCOL 3350 17 GM PACKET. PEG (09:12)
[2017-09-10] MEDS: NYSTATIN TOPICAL POWDER 15GM BOTTLE. TP ×2 (09:12→21:00)
[2017-09-10] MEDS: FOLIC ACID 1 MG TABLET. PEG (09:12)
[2017-09-10] MEDS: FOLIC/VIT B COMP W-C (RENAL) TABLET. PO (09:12)
[2017-09-10] MEDS: LANSOPRAZOLE 30 MG TAB.RAP.DR FT (09:12)
[2017-09-10] MEDS: METOPROLOL TART IMMED RELEASE 25 MG TABLET. PO ×2 (09:23→20:37)
[2017-09-10] MEDS: fentaNYL PF VIAL 100 MCG/2 ML VIAL IV (16:14)
[2017-09-10 18:09] LABS: POC GLUCOSE 110 mg/dL (70-99)
[2017-09-10 18:12] LABS: POC GLUCOSE 133 mg/dL (70-99)
[2017-09-10] MEDS: ATORVASTATIN CALCIUM 40 MG TABLET. PEG (20:37)
[2017-09-11 00:11] LABS: POC GLUCOSE 123 mg/dL (70-99)
[2017-09-11] MEDS: oxyCODONE/APAP 5/325 1 TAB TABLET PO ×4 (04:55→22:38)
[2017-09-11 05:21] LABS: BASO % 0 % (0-3); EOS % 0 % (0-3); HEMOGLOBIN 7.4 g/dL (12.0-15.5); LYMPH # 0.3 x10^3/uL (1.0-4.8); LYMPH % 3 % (24-48); MEAN CORPUSCULAR HEMOGLOBIN 31 pg (25-35); MEAN CORPUSCULAR HGB CONC 34 g/dL (31-37); MEAN CORPUSCULAR VOLUME 91 fL (79-100); MONO # 0.6 x10^3/uL (0.0-1.1); MONO % 6 % (0-9); NEUT # 9.4 x10^3uL (1.8-7.7); NEUT % 91 % (31-73); PLATELET COUNT 152 x10^3/uL (140-400); RED BLOOD COUNT 2.42 x10^6/uL (3.50-5.40); RED CELL DISTRIBUTION WIDTH 18.6 % (11.5-14.5); WHITE BLOOD COUNT 10.2 x10^3/uL (4.0-11.0)
[2017-09-11 05:23] LABS: POC GLUCOSE 117 mg/dL (70-99)
[2017-09-11 05:35] LABS: ALBUMIN 2.1 g/dL (3.4-5.0); ALBUMIN/GLOBULIN RATIO 0.5 (1.0-1.7); ALK PHOS 405 U/L (46-116); ALT (SGPT) 97 U/L (14-59); ANION GAP 9 (6-14); AST (SGOT) 83 U/L (15-37); BLOOD UREA NITROGEN 51 mg/dL (7-20); BUN/CREATININE RATIO 23 (6-20); CALCIUM 8.1 mg/dL (8.5-10.1); CARBON DIOXIDE 28 mmol/L (21-32); CHLORIDE 101 mmol/L (98-107); CREATININE 2.2 mg/dL (0.6-1.0); GFR 28.1; GLUCOSE 127 mg/dL (70-99); POTASSIUM 5.9 mmol/L (3.5-5.1); SODIUM 138 mmol/L (136-145); TOTAL PROTEIN 6.4 g/dL (6.4-8.2)
[2017-09-11 05:44] LABS: ADD MAN DIFF? YES
[2017-09-11] MEDS: IPRATRPIUM/ALBUTEROL 0.5/2.5MG 3 ML NEBU. NEB ×4 (07:21→19:36)
[2017-09-11 07:29] LABS: FECAL OB PT POSITIVE (NEG); NEG OBC FOB NEG; POS OBC FOB POS
[2017-09-11] MEDS: ISOSORBIDE DINITRATE 10 MG TABLET. PO ×3 (07:30→16:47)
[2017-09-11] MEDS: METOCLOPRAMIDE ORAL SOLN 10 MG/10 ML SOLUTION. PO ×4 (07:30→20:35)
[2017-09-11 10:19] LABS: % BANDS 2 % (0-9); % LYMPHS 6 % (24-48); % MONOS 4 % (0-10); % MYELOS 1 % (0-0); % SEGS 87 % (35-66); NUCLEATED RBC 1; PLT ESTIMATE ADEQUATE (ADEQUATE)
[2017-09-11] MEDS: METOPROLOL TART IMMED RELEASE 25 MG TABLET. PO ×2 (11:31→20:36)
[2017-09-11] MEDS: ALLOPURINOL 100 MG TABLET. PEG (11:31)
[2017-09-11] MEDS: ASCORBIC ACID 500 MG TABLET PO (11:31)
[2017-09-11] MEDS: PROPAFENONE 150 MG TABLET. PEG ×3 (11:32→20:35)
[2017-09-11] MEDS: LANSOPRAZOLE 30 MG TAB.RAP.DR FT (11:32)
[2017-09-11] MEDS: FOLIC/VIT B COMP W-C (RENAL) TABLET. PO (11:32)
[2017-09-11] MEDS: FOLIC ACID 1 MG TABLET. PEG (11:32)
[2017-09-11] MEDS: ASPIRIN CHEWABLE 81 MG TABLET. PEG (11:33)
[2017-09-11] MEDS: methylPREDNISolone SOD SUCC PF 40 MG/ML VIAL. IV (11:34)
[2017-09-11] MEDS: FERROUS SULFATE ORAL 300 MG/5 ML SOLUTION. PEG ×3 (11:34→20:35)
[2017-09-11] MEDS: NYSTATIN TOPICAL POWDER 15GM BOTTLE. TP ×2 (11:34→20:36)
[2017-09-11] MEDS: POLYVINYL ALCOHOL 1.4% OPHTH SOLUTION 15ML BOTTLE. OU ×2 (11:34→20:38)
[2017-09-11] MEDS: ZINC OXIDE 20% TOPICAL OINTMENT 28GM TUBE. TP ×2 (11:34→20:36)
[2017-09-11] MEDS: POLYETHYLENE GLYCOL 3350 17 GM PACKET. PEG (11:34)
[2017-09-11] MEDS: fentaNYL PF VIAL 100 MCG/2 ML VIAL IV (17:32)
[2017-09-11] MEDS: ATORVASTATIN CALCIUM 40 MG TABLET. PEG (20:35)
[2017-09-12 00:22] LABS: POC GLUCOSE 103 mg/dL (70-99)
[2017-09-12] MEDS: oxyCODONE/APAP 5/325 1 TAB TABLET PO ×4 (03:32→22:36)
[2017-09-12 04:23] LABS: HEMATOCRIT 20.8 % (36.0-47.0)
[2017-09-12] MEDS: IPRATRPIUM/ALBUTEROL 0.5/2.5MG 3 ML NEBU. NEB ×5 (06:15→19:21)
[2017-09-12 07:46] LABS: POC GLUCOSE 111 mg/dL (70-99)
[2017-09-12] MEDS: FERROUS SULFATE ORAL 300 MG/5 ML SOLUTION. PEG ×3 (09:09→21:22)
[2017-09-12] MEDS: METOCLOPRAMIDE ORAL SOLN 10 MG/10 ML SOLUTION. PO ×4 (09:10→21:23)
[2017-09-12] MEDS: PROPAFENONE 150 MG TABLET. PEG ×3 (09:11→21:23)
[2017-09-12] MEDS: ASPIRIN CHEWABLE 81 MG TABLET. PEG (09:11)
[2017-09-12] MEDS: POLYETHYLENE GLYCOL 3350 17 GM PACKET. PEG (09:11)
[2017-09-12] MEDS: FOLIC/VIT B COMP W-C (RENAL) TABLET. PO (09:11)
[2017-09-12] MEDS: ISOSORBIDE DINITRATE 10 MG TABLET. PO ×3 (09:12→18:04)
[2017-09-12] MEDS: LANSOPRAZOLE 30 MG TAB.RAP.DR FT (09:12)
[2017-09-12] MEDS: FOLIC ACID 1 MG TABLET. PEG (09:12)
[2017-09-12] MEDS: ASCORBIC ACID 500 MG TABLET PO (09:12)
[2017-09-12] MEDS: METOPROLOL TART IMMED RELEASE 25 MG TABLET. PO ×2 (09:12→21:23)
[2017-09-12] MEDS: ALLOPURINOL 100 MG TABLET. PEG (09:12)
[2017-09-12] MEDS: POLYVINYL ALCOHOL 1.4% OPHTH SOLUTION 15ML BOTTLE. OU ×2 (09:13→21:23)
[2017-09-12] MEDS: ZINC OXIDE 20% TOPICAL OINTMENT 28GM TUBE. TP ×2 (09:13→21:25)
[2017-09-12] MEDS: NYSTATIN TOPICAL POWDER 15GM BOTTLE. TP ×2 (09:13→21:25)
[2017-09-12 12:14] LABS: ALBUMIN 2.1 g/dL (3.4-5.0); ANION GAP 8 (6-14); BLOOD UREA NITROGEN 60 mg/dL (7-20); CALCIUM 7.8 mg/dL (8.5-10.1); CARBON DIOXIDE 30 mmol/L (21-32); CHLORIDE 101 mmol/L (98-107); CREATININE 2.6 mg/dL (0.6-1.0); GFR 23.2; GLUCOSE 116 mg/dL (70-99); SODIUM 139 mmol/L (136-145)
[2017-09-12 12:17] LABS: POTASSIUM 6.2 mmol/L (3.5-5.1)
[2017-09-12 12:30] LABS: POC GLUCOSE 87 mg/dL (70-99)
[2017-09-12 12:30] LABS: IMMEDIATE SPIN CROSSMATCH 1 1
[2017-09-12] MEDS ORDERED: IV NORMAL SALINE 1000ML BAG 1,000 ML IV (14:01)
[2017-09-12] MEDS ORDERED: DIALYSIS PATIENT. MC ×2 (14:15)
[2017-09-12] MEDS ORDERED: 0.9 % SODIUM CHLORIDE 10 ML DISP.SYRIN. IV ×2 (14:15)
[2017-09-12 18:28] LABS: POC GLUCOSE 96 mg/dL (70-99)
[2017-09-12] MEDS: ATORVASTATIN CALCIUM 40 MG TABLET. PEG (21:23)
[2017-09-13 02:44] LABS: POC GLUCOSE 83 mg/dL (70-99)
[2017-09-13] MEDS: oxyCODONE/APAP 5/325 1 TAB TABLET PO ×4 (04:29→23:43)
[2017-09-13 06:03] LABS: HEMATOCRIT 24.9 % (36.0-47.0); HEMOGLOBIN 8.5 g/dL (12.0-15.5); MEAN CORPUSCULAR HEMOGLOBIN 30 pg (25-35); MEAN CORPUSCULAR HGB CONC 34 g/dL (31-37); MEAN CORPUSCULAR VOLUME 89 fL (79-100); PLATELET COUNT 134 x10^3/uL (140-400); WHITE BLOOD COUNT 10.7 x10^3/uL (4.0-11.0)
[2017-09-13] MEDS: DEXTROSE 50% 25 GM / 50ML DISP.SYRIN. IV (06:15)
[2017-09-13 06:22] LABS: POC GLUCOSE 65 mg/dL (70-99)
[2017-09-13 07:08] LABS: ALBUMIN 1.7 g/dL (3.4-5.0); ANION GAP 8 (6-14); BLOOD UREA NITROGEN 31 mg/dL (7-20); CALCIUM 7.4 mg/dL (8.5-10.1); CARBON DIOXIDE 29 mmol/L (21-32); CHLORIDE 98 mmol/L (98-107); CREATININE 1.6 mg/dL (0.6-1.0); GFR 40.6; GLUCOSE 79 mg/dL (70-99); PHOSPHORUS 1.7 mg/dL (2.6-4.7); POTASSIUM 4.1 mmol/L (3.5-5.1); SODIUM 135 mmol/L (136-145)
[2017-09-13] MEDS: IPRATRPIUM/ALBUTEROL 0.5/2.5MG 3 ML NEBU. NEB ×4 (08:15→19:39)
[2017-09-13] MEDS: METOCLOPRAMIDE ORAL SOLN 10 MG/10 ML SOLUTION. PO ×4 (09:47→20:45)
[2017-09-13] MEDS: FERROUS SULFATE ORAL 300 MG/5 ML SOLUTION. PEG ×3 (09:47→20:45)
[2017-09-13] MEDS: POLYVINYL ALCOHOL 1.4% OPHTH SOLUTION 15ML BOTTLE. OU ×2 (09:49→20:46)
[2017-09-13] MEDS: ISOSORBIDE DINITRATE 10 MG TABLET. PO ×3 (09:50→17:45)
[2017-09-13] MEDS: ALLOPURINOL 100 MG TABLET. PEG (09:51)
[2017-09-13] MEDS: LANSOPRAZOLE 30 MG TAB.RAP.DR FT (09:51)
[2017-09-13] MEDS: PROPAFENONE 150 MG TABLET. PEG ×3 (09:51→20:45)
[2017-09-13] MEDS: FOLIC ACID 1 MG TABLET. PEG (09:51)
[2017-09-13] MEDS: METOPROLOL TART IMMED RELEASE 25 MG TABLET. PO ×2 (09:51→20:46)
[2017-09-13] MEDS: ASCORBIC ACID 500 MG TABLET PO (09:51)
[2017-09-13] MEDS: FOLIC/VIT B COMP W-C (RENAL) TABLET. PO (09:52)
[2017-09-13] MEDS: POLYETHYLENE GLYCOL 3350 17 GM PACKET. PEG (09:52)
[2017-09-13] MEDS: ASPIRIN CHEWABLE 81 MG TABLET. PEG (09:52)
[2017-09-13] MEDS: NYSTATIN TOPICAL POWDER 15GM BOTTLE. TP ×2 (10:00→20:46)
[2017-09-13] MEDS: ZINC OXIDE 20% TOPICAL OINTMENT 28GM TUBE. TP ×2 (10:00→20:46)
[2017-09-13 12:55] LABS: POC GLUCOSE 123 mg/dL (70-99)
[2017-09-13 12:55] LABS: POC GLUCOSE 83 mg/dL (70-99)
[2017-09-13] MEDS: fentaNYL PF VIAL 100 MCG/2 ML VIAL IV (15:00)
[2017-09-13] MEDS: ATORVASTATIN CALCIUM 40 MG TABLET. PEG (20:46)
[2017-09-13 21:17] LABS: POC GLUCOSE 94 mg/dL (70-99)
[2017-09-14 00:01] LABS: POC GLUCOSE 76 mg/dL (70-99)
[2017-09-14] MEDS: oxyCODONE/APAP 5/325 1 TAB TABLET PO ×2 (04:40→10:15)
[2017-09-14 04:49] LABS: POC GLUCOSE 71 mg/dL (70-99)
[2017-09-14] MEDS: METOCLOPRAMIDE ORAL SOLN 10 MG/10 ML SOLUTION. PO ×2 (07:30→14:36)
[2017-09-14] MEDS: ISOSORBIDE DINITRATE 10 MG TABLET. PO ×2 (07:30→14:38)
[2017-09-14] MEDS: IPRATRPIUM/ALBUTEROL 0.5/2.5MG 3 ML NEBU. NEB ×2 (08:20→12:00)
[2017-09-14] MEDS ORDERED: IV NORMAL SALINE 1000ML BAG 1,000 ML IV ×2 (08:38)
[2017-09-14] MEDS ORDERED: 0.9 % SODIUM CHLORIDE 10 ML DISP.SYRIN. IV ×2 (08:45)
[2017-09-14] MEDS ORDERED: diphenhydrAMINE 50 MG/ML VIAL IV ×2 (08:45)
[2017-09-14] MEDS ORDERED: DIALYSIS PATIENT. MC (08:45)
[2017-09-14] MEDS: METOPROLOL TART IMMED RELEASE 25 MG TABLET. PO (09:00)
[2017-09-14] MEDS: NYSTATIN TOPICAL POWDER 15GM BOTTLE. TP (09:00)
[2017-09-14] MEDS: PROPAFENONE 150 MG TABLET. PEG ×2 (09:00→14:37)
[2017-09-14] MEDS: POLYVINYL ALCOHOL 1.4% OPHTH SOLUTION 15ML BOTTLE. OU (09:00)
[2017-09-14] MEDS: FERROUS SULFATE ORAL 300 MG/5 ML SOLUTION. PEG ×2 (09:00→14:37)
[2017-09-14] MEDS: ZINC OXIDE 20% TOPICAL OINTMENT 28GM TUBE. TP (09:00)
[2017-09-14 10:27] LABS: ALBUMIN 1.6 g/dL (3.4-5.0); ANION GAP 7 (6-14); BLOOD UREA NITROGEN 42 mg/dL (7-20); CARBON DIOXIDE 29 mmol/L (21-32); CHLORIDE 95 mmol/L (98-107); GFR 31.4; GLUCOSE 107 mg/dL (70-99); PHOSPHORUS 1.8 mg/dL (2.6-4.7); POTASSIUM 4.2 mmol/L (3.5-5.1); SODIUM 131 mmol/L (136-145)
[2017-09-14] MEDS: FOLIC/VIT B COMP W-C (RENAL) TABLET. PO (14:37)
[2017-09-14] MEDS: ASCORBIC ACID 500 MG TABLET PO (14:37)
[2017-09-14] MEDS: ASPIRIN CHEWABLE 81 MG TABLET. PEG (14:38)
[2017-09-14] MEDS: ALLOPURINOL 100 MG TABLET. PEG (14:38)
[2017-09-14] MEDS: POLYETHYLENE GLYCOL 3350 17 GM PACKET. PEG (14:38)
[2017-09-14] MEDS: LANSOPRAZOLE 30 MG TAB.RAP.DR FT (14:38)
[2017-09-14] MEDS: FOLIC ACID 1 MG TABLET. PEG (14:38)
== END 2017-09-14 14:50 | DRG 177 ==
LOC: 6 SOUTH 20:32
PROC: 0DH63UZ Insertion of Feeding Device into Stomach, Percutaneous Approach (ICD-10-PCS; principal; 2017-08-30 07:57)
PROC: 02H633Z Insertion of Infusion Device into Right Atrium, Percutaneous Approach (ICD-10-PCS; 2017-08-30 07:57)
PROC: B244ZZZ Ultrasonography of Right Heart (ICD-10-PCS; 2017-08-30 07:57)
PROC: 30233N1 Transfusion of Nonautologous Red Blood Cells into Peripheral Vein, Percutaneous Approach (ICD-10-PCS; 2017-08-30 07:57)
PROC: 5A1D70Z Performance of Urinary Filtration, Intermittent, Less than 6 Hours Per Day (ICD-10-PCS; 2017-08-30 07:57)
PROC: 5A1D70Z Performance of Urinary Filtration, Intermittent, Less than 6 Hours Per Day (ICD-10-PCS; 2017-08-30 07:57)
PROC: 5A1D70Z Performance of Urinary Filtration, Intermittent, Less than 6 Hours Per Day (ICD-10-PCS; 2017-08-30 07:57)
PROC: 5A1D70Z Performance of Urinary Filtration, Intermittent, Less than 6 Hours Per Day (ICD-10-PCS; 2017-08-30 07:57)
PROC: 5A1D70Z Performance of Urinary Filtration, Intermittent, Less than 6 Hours Per Day (ICD-10-PCS; 2017-08-30 07:57)
PROC: 5A1D70Z Performance of Urinary Filtration, Intermittent, Less than 6 Hours Per Day (ICD-10-PCS; 2017-08-30 07:57)
PROC: 0DJ08ZZ Inspection of Upper Intestinal Tract, Via Natural or Artificial Opening Endoscopic (ICD-10-PCS; 2017-08-30 07:57)
DX: J69.0 Pneumonitis due to inhalation of food and vomit (principal); G93.41 Metabolic encephalopathy; J96.21 Acute and chronic respiratory failure with hypoxia; E43 Unspecified severe protein-calorie malnutrition; I13.2 Hypertensive heart and chronic kidney disease with heart failure and with stage 5 chronic kidney disease, or end stage renal disease; N17.9 Acute kidney failure, unspecified; R13.12 Dysphagia, oropharyngeal phase; E11.22 Type 2 diabetes mellitus with diabetic chronic kidney disease; D69.6 Thrombocytopenia, unspecified; I50.33 Acute on chronic diastolic (congestive) heart failure; N18.6 End stage renal disease; D62 Acute posthemorrhagic anemia; E87.0 Hyperosmolality and hypernatremia; I42.5 Other restrictive cardiomyopathy; N02.8 Recurrent and persistent hematuria with other morphologic changes; N39.0 Urinary tract infection, site not specified; R47.01 Aphasia; D63.1 Anemia in chronic kidney disease; D86.9 Sarcoidosis, unspecified; E03.9 Hypothyroidism, unspecified; E11.649 Type 2 diabetes mellitus with hypoglycemia without coma; E66.9 Obesity, unspecified; E78.5 Hyperlipidemia, unspecified; F03.90 Unspecified dementia, unspecified severity, without behavioral disturbance, psychotic disturbance, mood disturbance, and anxiety; G31.9 Degenerative disease of nervous system, unspecified; H53.40 Unspecified visual field defects; I48.0 Paroxysmal atrial fibrillation; I27.20 Pulmonary hypertension, unspecified; J44.9 Chronic obstructive pulmonary disease, unspecified; K21.9 Gastro-esophageal reflux disease without esophagitis; K29.70 Gastritis, unspecified, without bleeding; Y95 Nosocomial condition; I80.8 Phlebitis and thrombophlebitis of other sites; M19.90 Unspecified osteoarthritis, unspecified site; Z51.5 Encounter for palliative care; Z82.49 Family history of ischemic heart disease and other diseases of the circulatory system; Z86.73 Personal history of transient ischemic attack (TIA), and cerebral infarction without residual deficits; Z87.11 Personal history of peptic ulcer disease; Z90.49 Acquired absence of other specified parts of digestive tract; Z95.0 Presence of cardiac pacemaker; Z99.2 Dependence on renal dialysis; Z83.3 Family history of diabetes mellitus; Z68.34 Body mass index [BMI] 34.0-34.9, adult; Z88.8 Allergy status to other drugs, medicaments and biological substances
CPT/HCPCS: 36415; 36556; 36600; 70450; 71045; 74018; 76700; 76937; 77001; 80048; 80053; 80069; 81001; 82274; 82607; 82728; 82746; 82805; 82962; 83540; 83550; 83735; 84100; 84443; 85007; 85014; 85018; 85025; 85027; 85610; 85651; 85730; 86704; 86706; 86850; 86900; 86901; 86920; 87086; 87324; 87340; 92526-GN; 92610-GN; 93005; 93306; 93970; 94640; 94660; 94760; 97110-GO; 97110-GP; 97112-GP; 97163-GP; 97167-GO; 97530-GO; 97530-GP; 97535-GO; C1769; C1892; C9113; J0360; J0881; J1940; J2020; J2060; J2185; J2704; J2920; J2930; J3010; J7042; J7613; J7620; J8597; P9016; S0028